=== PATIENT | female | born 1940 | race Caucasian/White ===

== ENCOUNTER 2017-02-13 16:16 | Inpatient (IN) | payer MEDICARE ==
[~2017-02-13] VITALS: Ht 165.1 cm; Wt 83.6 kg
--- NOTE | 2017-02-13 16:22 | PD ---
Physical Exam Time Seen by Provider: 16:21 Narrative 76 y/o female presents voluntarily requesting psychiatric evaluation of depression, suicidal thoughts. Denies any attempts at self-harm. Seen at triage desk. Awaiting bed placement. [facility] Medical Record Reviewed: Yes Supervised Visit with WESLY: Bigg Wang February 13, 2017 16:22
[2017-02-13 16:34] VITALS: BP 164/102; PULSE 88; RESP 22; TEMP 98.5; O2SAT 96
[2017-02-13 16:48] VITALS: BP 160/78; PULSE 66; TEMP 97.3; O2SAT 97
--- NOTE | 2017-02-13 17:41 | PD ---
HPI Chief Complaint: Suicide Ideation/Attempt Time Seen by Provider: 17:38 Travel History International Travel<30 days: No Contact w/Intl Traveler<30days: No Traveled to known affect area: No History of Present Illness HPI 76-year-old female that presents to the ED for evaluation of suicidal ideation. Patient has a chronic history of depression and states that she's been feeling suicidal no plan. Patient came here but internally for evaluation of this. She does have a history of hypertension, arthritis, chronic kidney disease as well as Dr. ortiz on Coumadin as well as COPD. She denies any medical issues at this time. Per patient she is to take metoprolol but this was reduced secondary to patient being too bradycardic. Patient denies any plan. Patient denies any chest pain or shortness of breath. Patient comes here voluntarily to get evaluate for psychiatric. Per patient his been an ongoing issue that is worsening for the past couple of days. Patient does have allergies to medication. PFSH Past Medical History Hx Anticoagulant Therapy: Yes (WARFARIN) Cardiovascular Problems: Yes (AFIB) Diabetes: Yes Patient Takes Glucophage: No Diminished Hearing: Yes ([place]ILTON) Genitourinary: Yes (Stage II Chronic Renal Disease; Bladder Issues per pt) Kidney Stones: Yes (Hx per pt.) Medical other: Yes (Graves Disease per pt.) Respiratory: Yes (COPD) Tetanus Vaccination: Unknown ?: Not Menopausal: Yes : 2 Para: 2 Miscarriage: 0 : 0 Past Surgical History Cholecystectomy: Yes Eye Surgery: Yes (Cataracts - right eye a month ago ) Hysterectomy: Yes (retains left ovary) Oral Surgery: Yes (Missing top teeth - didn't bring denture with her.) Other Surgery: Yes (Dialation of Esophagus at times per pt.) Social History Alcohol Use: No Tobacco Use: No Substance Use: No Allergies-Medications (Allergen,Severity, Reaction): Coded Allergies: Contrast Media (Verified Allergy, Severe, Swelling, 02/13/17) Morphine (Verified Allergy, Severe, Rash, 02/13/17) Penicillin (Verified Allergy, Severe, Hives, 02/13/17) Sulfa (Verified Allergy, Severe, 02/13/17) "MOUTH GETS REAL SORE" Vancomycin (Verified Allergy, Unknown, 02/13/17) Reported Meds & Prescriptions Reported Meds & Active Scripts Active Reported Ilevro Opth Drops (Nepafenac) 0.3 % Soln 1 Drop RIGHT EYE DAILY Ocuflox Opth Drops (Ofloxacin Opth Drops) 0.3 % Drops 1 Drop RIGHT EYE DAILY Durezol Opth (Difluprednate Opth) 0.05% Emul 1 Drop RIGHT EYE DAILY Metoprolol Succinate ER 24 HR (Metoprolol Succinate) 25 Mg Tab 25 Mg PO DAILY Levothyroxine (Levothyroxine Sodium) 150 Mcg Tab 150 Mcg PO DAILY Pantoprazole (Pantoprazole Sodium) 40 Mg Tab 40 Mg PO DAILY Myrbetriq (Mirabegron) 50 Mg Tab 50 Mg PO DAILY Trazodone (Trazodone HCl) 300 Mg Tab 300 Mg PO HS Lorazepam 0.5 Mg Tab 0.5 Mg PO HS Wellbutrin Xl 24 HR (Bupropion HCl) 300 Mg Tab 300 Mg PO DAILY Prozac (Fluoxetine HCl) 40 Mg Cap 40 Mg PO DAILY (NOON) Ultram (Tramadol HCl) 50 Mg Tab 50 Mg PO DAILY Senna-Docusate Sodium (Sennosides-Docusate Sodium) 8.6-50 Mg Tab 1 Tab PO DAILY Pravastatin 40 Mg Tab 40 Mg PO DAILY Lisinopril 5 Mg Tab 5 Mg PO DAILY Nitrofurantoin Macrocrystal 50 Mg Cap 50 Mg PO BID Biotin 5 Mg Cap 5 Mg PO Jantoven (Warfarin) 5 Mg Tab 5 Mg PO DIRECTED Glipizide 5 Mg Tab 2.5 Mg PO DAILY Take 30 minutes before a meal Review of Systems Except as stated in HPI: all other systems reviewed are Neg Physical Exam Narrative GENERAL: SKIN: Warm and dry. HEAD: Atraumatic. Normocephalic. EYES: Pupils equal and round. No scleral icterus. No injection or drainage. ENT: No nasal bleeding or discharge. Mucous membranes pink and moist. The tongue is midline. No uvula deviation. NECK: Trachea midline. No JVD. CARDIOVASCULAR: Regular rate and rhythm. No murmurs, S3, S4. RESPIRATORY: No accessory muscle use. Clear to auscultation. Breath sounds equal bilaterally. GASTROINTESTINAL: Abdomen soft, non-tender, nondistended. Hepatic and splenic margins not palpable. MUSCULOSKELETAL: Extremities without clubbing, cyanosis, or edema. No obvious deformities. Full range of motion of the upper and lower extremities bilaterally. 2+ pulses bilaterally. NEUROLOGICAL: Awake and alert. No obvious cranial nerve deficits. Motor grossly within normal limits. Five out of 5 muscle strength in the arms and legs. Normal speech. PSYCHIATRIC: Appropriate mood and affect; insight and judgment normal. Data Data Last Documented VS Vital Signs Date Time Temp Pulse Resp B/P Pulse Ox O2 Delivery O2 Flow Rate FiO2 02/13/17 18:23 97.8 70 18 148/67 97 02/13/17 16:48 Room Air Orders Diet Regular Basic (02/13/17 Dinner) Complete Blood Count With Diff (02/13/17 17:13) Comprehensive Metabolic Panel (02/13/17 17:13) Psych Screen (02/13/17 17:13) Drug Screen, Random Urine (02/13/17 17:13) Alcohol (Ethanol) (02/13/17 17:13) Salicylates (Aspirin) (02/13/17 17:13) Tylenol (Acetaminophen) (02/13/17 17:13) Prothrombin Time / Inr (Pt) (02/13/17 17:37) Act Partial Throm Time (Ptt) (02/13/17 17:37) Labs Laboratory Tests Test 02/13/17 19:25 White Blood Count 3.2 TH/MM3 Red Blood Count 4.40 MIL/MM3 Hemoglobin 11.8 GM/DL Hematocrit 35.0 % Mean Corpuscular Volume 79.5 FL Mean Corpuscular Hemoglobin 26.9 PG Mean Corpuscular Hemoglobin 33.8 % Concent Red Cell Distribution Width 13.2 % Platelet Count 136 TH/MM3 Mean Platelet Volume 8.0 FL Neutrophils (%) (Auto) 62.1 % Lymphocytes (%) (Auto) 25.5 % Monocytes (%) (Auto) 9.9 % Eosinophils (%) (Auto) 2.0 % Basophils (%) (Auto) 0.5 % Neutrophils # (Auto) 2.0 TH/MM3 Lymphocytes # (Auto) 0.8 TH/MM3 Monocytes # (Auto) 0.3 TH/MM3 Eosinophils # (Auto) 0.1 TH/MM3 Basophils # (Auto) 0.0 TH/MM3 CBC Comment DIFF FINAL Differential Comment Prothrombin Time 16.8 SEC Prothromb Time International 1.5 RATIO Ratio Activated Partial 29.7 SEC Thromboplast Time Sodium Level 140 MEQ/L Potassium Level 3.9 MEQ/L Chloride Level 105 MEQ/L Carbon Dioxide Level 29.0 MEQ/L Anion Gap 6 MEQ/L Blood Urea Nitrogen 31 MG/DL Creatinine 1.26 MG/DL Estimat Glomerular Filtration 41 ML/MIN Rate Random Glucose 186 MG/DL Calcium Level 9.0 MG/DL Total Bilirubin 0.2 MG/DL Aspartate Amino Transf 16 U/L (AST/SGOT) Alanine Aminotransferase 20 U/L (ALT/SGPT) Alkaline Phosphatase 74 U/L Total Protein 6.3 GM/DL Albumin 3.2 GM/DL Salicylates Level LESS THAN 1.7 MG/DL Acetaminophen Level LESS THAN 2.0 MCG/ML Ethyl Alcohol Level LESS THAN 3 MG/DL MDM Medical Decision Making Medical Screen Exam Complete: Yes Emergency Medical Condition: Yes Medical Record Reviewed: Yes Interpretation(s) CBC & BMP Diagram 02/13/17 19:25 INR of 1.5 LFTS WNL tox negative Differential Diagnosis Depression versus suicidal ideation versus anxiety versus adjustment disorder versus mood disorder versus bipolar disorder versus schizophrenia versus paranoid disorder versus psychosis versus substance abuse versus alcohol abuse versus alcohol induced psychosis versus homicidality addition versus cutting versus personality disorder Narrative Course 76-year-old female that presents to the ED for evaluation of psych. Patient was properly examined and was found to have signs and symptoms consistent appears to be psychiatric illness. No sign of acute medical distress. Patient has chronic medical issues. Lab work was done. Patient was medically cleared. Okay to be seen by psych. Mental health screening was discussed with the patient. Diagnosis Primary Impression: Depression Qualified Code: F33.1 - Moderate episode of recurrent major depressive disorder Ted Gonsales February 13, 2017 17:41
[2017-02-13] MEDS ORDERED: GLIP5TAB8 PO (18:08)
[2017-02-13] MEDS ORDERED: JANT5TAB PO (18:09)
[2017-02-13] MEDS ORDERED: BIOTCAP PO (18:11)
[2017-02-13] MEDS ORDERED: NITR1CAP37 PO (18:13)
[2017-02-13] MEDS ORDERED: PRAV40TA2 PO (18:22)
[2017-02-13] MEDS ORDERED: LISI-519 PO (18:22)
[2017-02-13 18:23] VITALS: BP 148/67; PULSE 70; RESP 18; TEMP 97.8; O2SAT 97
[2017-02-13] MEDS ORDERED: SENN1TAB2 PO (18:25)
[2017-02-13] MEDS ORDERED: SENO8.6T5 PO (18:25)
[2017-02-13] MEDS ORDERED: ULTR50TA5 PO (18:26)
[2017-02-13] MEDS ORDERED: PROZ40CA PO (18:27)
[2017-02-13] MEDS ORDERED: WELLTAB39 PO (18:28)
[2017-02-13] MEDS ORDERED: TRAZ300T2 PO (18:29)
[2017-02-13] MEDS ORDERED: LORA-373 PO (18:29)
[2017-02-13] MEDS ORDERED: PANT40TA3 PO (18:30)
[2017-02-13] MEDS ORDERED: MIRA50TA PO (18:30)
[2017-02-13] MEDS ORDERED: METO25TA6 PO (18:31)
[2017-02-13] MEDS ORDERED: LEVO150T7 PO (18:31)
[2017-02-13] MEDS ORDERED: DIFL0.0512 RIGHT EYE (18:34)
[2017-02-13] MEDS ORDERED: OCUF0.3D RIGHT EYE (18:35)
[2017-02-13] MEDS ORDERED: NEPA0.3D RIGHT EYE (18:36)
[2017-02-13 19:59] LABS: BASOPHIL % 0.5 % (0.0-2.0); EOSINOPHIL # 0.1 TH/MM3 (0-0.4); HEMO FLAGS DIFF FINAL; LYMPH % 25.5 % (9.0-44.0); LYMPHOCYTE # 0.8 TH/MM3 (1.0-4.8); MEAN CELL VOLUME 79.5 FL (80.0-100.0); MEAN CORPUSCULAR HEMOGLOBIN 26.9 PG (27.0-34.0); MEAN CORPUSCULAR HGB CONC 33.8 % (32.0-36.0); MONO % 9.9 % (0.0-8.0); NEUT % 62.1 % (16.0-70.0); PLATELET COUNT 136 TH/MM3 (150-450); RED CELL DISTRIBUTION WIDTH 13.2 % (11.6-17.2); WHITE BLOOD COUNT 3.2 TH/MM3 (4.0-11.0)
[2017-02-13 20:00] LABS: ANION GAP 6 MEQ/L (5-15)
[2017-02-13 20:04] LABS: ACETAMINOPHEN LESS THAN 2.0 MCG/ML (10.0-30.0); ALKALINE PHOSPHATASE 74 U/L (45-117); ALT (GPT) 20 U/L (10-53); AST (GOT) 16 U/L (15-37); BLOOD UREA NITROGEN 31 MG/DL (7-18); CHLORIDE 105 MEQ/L (98-107); GLOMERULAR FILTRATION RATE 41 ML/MIN (>89); POTASSIUM 3.9 MEQ/L (3.5-5.1); SODIUM (NA) 140 MEQ/L (136-145); TOTAL BILIRUBIN ADULT 0.2 MG/DL (0.2-1.0)
[2017-02-13 20:11] LABS: APTT (PATIENT) 29.7 SEC (24.3-30.1); INTERNATIONAL NORMALIZED RATIO 1.5 RATIO; PROTHROMBIN TIME - PATIENT 16.8 SEC (9.8-11.6)
[2017-02-13 20:56] LABS: AMPHETAMINE, URINE NEG (NEG); BARBITURATES, URINE NEG (NEG); COCAINE, URINE NEG (NEG)
[2017-02-13 22:19] VITALS: BP 171/79; PULSE 69; RESP 18; O2SAT 99
[2017-02-13] MEDS ORDERED: LORazepam 0.5 MG TAB PO ONE (22:30)
[2017-02-14 01:51] VITALS: BP 158/90; PULSE 67; RESP 18; O2SAT 98
[2017-02-14 06:24] VITALS: BP 160/74; PULSE 65; RESP 19; O2SAT 97
[2017-02-14 10:32] VITALS: BP 132/67; PULSE 75; RESP 16; TEMP 98.4; O2SAT 97
[2017-02-14] MEDS ORDERED: DIFLUPREDNATE OPTH RIGHT EYE SCH (14:15)
[2017-02-14] MEDS ORDERED: NON-FORMULARY DRUG (Nepafenac Opth Drops (Ilevro Opth Drops) 1 DROP) RIGHT EYE SCH (14:15)
[2017-02-14 14:36] VITALS: BP 153/87; PULSE 70; RESP 16; O2SAT 98
[2017-02-14] MEDS ORDERED: ACETAMINOPHEN 325 MG TAB PO PRN (15:00)
[2017-02-14] MEDS ORDERED: MAGNESIUM HYDROXIDE SUSP 30 ML CUP PO PRN (15:00)
[2017-02-14] MEDS ORDERED: ALUMINUM/MAGNESIUM/SIMETH 30 ML CUP PO PRN (15:00)
[2017-02-14] MEDS: OFLOXACIN 0.3% OPTH SOLN 5 ML BTL RIGHT EYE SCH (16:00)
[2017-02-14] MEDS: PANTOPRAZOLE SOD 40 MG DELAYED RELEASE TAB PO SCH (16:25)
[2017-02-14] MEDS: LISINOPRIL 5 MG TAB PO SCH (16:25)
[2017-02-14] MEDS: traMADol HCL 50 MG TAB PO SCH (16:26)
[2017-02-14] MEDS ORDERED: NITROFURANTOIN MONOHYD MACROCR 100 MG CAP PO SCH (18:00)
[2017-02-14 19:36] VITALS: BP 163/80; PULSE 72; RESP 16; TEMP 97.2
[2017-02-14] MEDS: LORazepam 0.5 MG TAB PO SCH (21:08)
[2017-02-14] MEDS: traZODone HCL 100 MG TAB PO SCH (21:08)
[2017-02-15] MEDS: hydrOXYzine HCL 50 MG TAB PO PRN (04:29)
[2017-02-15 05:29] VITALS: BP 136/65; PULSE 64; RESP 18; TEMP 98.2
[2017-02-15] MEDS: LEVOTHYROXINE SODIUM 150 MCG TAB PO SCH (05:54)
[2017-02-15 07:22] LABS: INTERNATIONAL NORMALIZED RATIO 1.4 RATIO; PROTHROMBIN TIME - PATIENT 15.2 SEC (9.8-11.6)
[2017-02-15] MEDS ORDERED: TOLTERODINE TARTRATE 4 MG CAP LA PO SCH (09:00)
[2017-02-15] MEDS: PANTOPRAZOLE SOD 40 MG DELAYED RELEASE TAB PO SCH (09:32)
[2017-02-15] MEDS: LISINOPRIL 5 MG TAB PO SCH (09:34)
[2017-02-15] MEDS: glipiZIDE 5 MG TAB PO SCH ×2 (09:35→09:52)
[2017-02-15] MEDS: DOCUSATE SODIUM 50 MG/SENNA 8.6 MG TAB PO SCH ×2 (09:35→09:51)
[2017-02-15] MEDS: PRAVASTATIN SOD 40 MG TAB PO SCH ×2 (09:35→09:51)
[2017-02-15] MEDS: traMADol HCL 50 MG TAB PO SCH ×2 (09:37→09:52)
[2017-02-15] MEDS: TOLTERODINE TARTRATE 4 MG CAP LA PO SCH (09:42)
[2017-02-15] MEDS: NITROFURANTOIN MONOHYD MACROCR 100 MG CAP PO SCH ×3 (09:43→17:26)
[2017-02-15] MEDS: buPROPion HCL 150 MG EXTENDED RELEASE TAB PO SCH ×2 (09:44→09:51)
[2017-02-15] MEDS: METOPROLOL SUCCINATE 25 MG EXTENDED RELEASE TAB PO SCH ×2 (09:48→09:51)
[2017-02-15] MEDS: OFLOXACIN 0.3% OPTH SOLN 5 ML BTL RIGHT EYE SCH (09:49)
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
[2017-02-15] MEDS: FLUoxetine HCL 20 MG CAP PO SCH (14:00)
--- NOTE | 2017-02-15 14:30 | PD.CONS ---
[facility] By [facility]ry team Reason for Consult Medical management, assist with history of multiple medical issues Primary Care Physician Dr. Jim Yin Diagnoses: History of Present Illness Written by Jac Ryder, acting as scribe for Dr. Horvath on 02/15/17 at 17: 51. Patient is a 76-year-old female with primary medical history of HTN, DM 2, CK D2 , COPD, A. fib on Coumadin who came into the hospital for evaluation of suicidal ideation. As per record, patient is a chronic history of depression and states that she's been feeling suicidal with no plans. She is now admitted to inpatient psychiatry unit for further evaluation. Consulted for medical management. Patient seen and examined today. Reports she is doing. Reports she doesn't have SI/HI right now. Verified her medical history. States she is taking Macrobid as a prophylactic status for bladder infection, which is recurrent. Discuss with patient Will DC Macrobid for now and repeat urine sample. Agrees with plan. Otherwise, denies pain and discomfort. Denies SOB/ dyspnea. Denies chest pain, palpitations, headaches, dizziness. Denies fevers, chills, n/ v/d. Denies hematuria, dysuria. Review of Systems Except as stated in HPI: all other systems reviewed are Neg Past Family Social History Allergies: Coded Allergies: Contrast Media (Verified Allergy, Severe, Swelling, 02/13/17) Morphine (Verified Allergy, Severe, Rash, 02/13/17) Penicillin (Verified Allergy, Severe, Hives, 02/13/17) Sulfa (Verified Allergy, Severe, 02/13/17) "MOUTH GETS REAL SORE" Vancomycin (Verified Allergy, Unknown, 02/13/17) Past Medical History HTN A. fib on Coumadin DM 2 Heart. CK D2 Kidney stones COPD Graves' disease - hypothyroidism Bladder issues Past Surgical History Cholecystectomy Cataract surgery Reported Medications Reported Meds & Active Scripts Active Reported Ilevro Opth Drops (Nepafenac) 0.3 % Soln 1 Drop RIGHT EYE DAILY Ocuflox Opth Drops (Ofloxacin Opth Drops) 0.3 % Drops 1 Drop RIGHT EYE DAILY Durezol Opth (Difluprednate Opth) 0.05% Emul 1 Drop RIGHT EYE DAILY Metoprolol Succinate ER 24 HR (Metoprolol Succinate) 25 Mg Tab 25 Mg PO DAILY Levothyroxine (Levothyroxine Sodium) 150 Mcg Tab 150 Mcg PO DAILY Pantoprazole (Pantoprazole Sodium) 40 Mg Tab 40 Mg PO DAILY Myrbetriq (Mirabegron) 50 Mg Tab 50 Mg PO DAILY Trazodone (Trazodone HCl) 300 Mg Tab 300 Mg PO HS Lorazepam 0.5 Mg Tab 0.5 Mg PO HS Wellbutrin Xl 24 HR (Bupropion HCl) 300 Mg Tab 300 Mg PO DAILY Prozac (Fluoxetine HCl) 40 Mg Cap 40 Mg PO DAILY (NOON) Ultram (Tramadol HCl) 50 Mg Tab 50 Mg PO DAILY Senna-Docusate Sodium (Sennosides-Docusate Sodium) 8.6-50 Mg Tab 1 Tab PO DAILY Pravastatin 40 Mg Tab 40 Mg PO DAILY Lisinopril 5 Mg Tab 5 Mg PO DAILY Nitrofurantoin Macrocrystal 50 Mg Cap 50 Mg PO BID Biotin 5 Mg Cap 5 Mg PO Jantoven (Warfarin) 5 Mg Tab 5 Mg PO DIRECTED Glipizide 5 Mg Tab 2.5 Mg PO DAILY Take 30 minutes before a meal Active Ordered Medications Current Medications Medications (Trade) Dose Ordered Sig/Jennifer Route Start Time Stop Time Status Last Admin (Benadryl) 50 mg HS PRN PO 02/14/17 21:00 (Milk Of Magnesia Liq) 30 ml DAILY PRN PO 02/14/17 15:00 (Mag-Al Plus Susp Liq) 30 ml Q6H PRN PO 02/14/17 15:00 (Atarax) 50 mg Q6H PRN PO 02/14/17 15:00 02/15/17 04:29 (Wellbutrin Xl 24 Hr) 300 mg DAILY PO 02/14/17 15:00 02/15/17 09:44 (Glucotrol) 2.5 mg DAILY PO 02/14/17 15:00 02/15/17 09:35 (Synthroid) 150 mcg DAILY@06 PO 02/15/17 06:00 02/15/17 05:54 (Prinivil) 5 mg DAILY PO 02/14/17 15:00 02/15/17 09:34 (Ativan) 0.5 mg HS PO 02/14/17 21:00 02/14/17 21:08 (Toprol Xl) 25 mg DAILY PO 02/14/17 15:00 02/15/17 09:48 (Ocuflox 0.3% Opth Soln) 1 drop DAILY RIGHT EYE 02/14/17 16:00 (Protonix) 40 mg DAILY PO 02/14/17 15:00 02/15/17 09:32 (Pravachol) 40 mg DAILY PO 02/14/17 15:00 02/15/17 09:35 (Nita-Colace) 1 tab DAILY PO 02/14/17 15:00 02/15/17 09:35 (Ultram) 50 mg DAILY PO 02/14/17 15:00 02/14/17 16:26 (Desyrel) 300 mg HS PO 02/14/17 21:00 02/14/17 21:08 Non-Formulary Medication 1 drop DAILY RIGHT EYE 02/14/17 14:15 Hold (PROzac) 40 mg DAILY@12 PO 02/15/17 12:00 02/15/17 14:00 Non-Formulary Medication 1 drop DAILY RIGHT EYE 02/14/17 14:15 Hold (Detrol La) 4 mg DAILY PO 02/15/17 09:00 02/15/17 09:42 (Macrobid) 100 mg BID@09,18 PO 02/14/17 18:00 02/15/17 09:43 Warfarin Sodium 5 mg 5 mg DAILY@1600 PO 02/15/17 16:00 (Coumadin Consult Pharmacy) 0 ml @ 0 mls/hr UNSCH OTHER 02/14/17 18:00 (Coumadin Booklet) 1 ONCE ONCE .XX 02/15/17 16:00 02/15/17 16:01 (Tylenol) 650 mg Q4H PRN PO 02/15/17 12:00 Family History Mother had breast cancer Father had lung cancer Social History Patient is . Lives with her daughter. She has 2 children. Denies alcohol use Denies tobacco use, one year tobacco smoking when she was young Denies illicit drug use Physical Exam Vital Signs Vital Signs Date Time Temp Pulse Resp B/P Pulse Ox O2 Delivery O2 Flow Rate FiO2 02/15/17 05:29 98.2 64 18 136/65 02/14/17 19:36 97.2 72 16 163/80 02/14/17 14:36 70 16 153/87 98 Room Air Physical Exam GENERAL: This is a well-nourished, well-developed patient, in no apparent distress. SKIN: No rashes, ecchymoses or lesions. Warm and dry. HEAD: Atraumatic. Normocephalic. No temporal or scalp tenderness. EYES: Pupils equal round and reactive. No scleral icterus. No injection or drainage. ENT: Nose without bleeding. Throat without erythema. Uvula midline. Airway patent. NECK: Trachea midline. No JVD or lymphadenopathy. CARDIOVASCULAR: Regular rate and rhythm without murmurs, gallops, or rubs. RESPIRATORY: Clear to auscultation. Breath sounds equal bilaterally. No wheezes , rales, or rhonchi. GASTROINTESTINAL: Abdomen soft, non-tender, nondistended. Bowel sounds active 4. MUSCULOSKELETAL: Extremities without clubbing, cyanosis, or edema. NEUROLOGICAL: Awake and alert. Oriented to person, time, place. Motor and sensory grossly within normal limits. Normal speech. Laboratory Laboratory Tests Test 02/15/17 06:58 Prothrombin Time 15.2 Prothromb Time International 1.4 Ratio Result Diagram: 02/13/17192402/13/171924 Assessment and Plan Problem List: (1) History of post traumatic stress disorder ICD Code: Z86.59 Status: Chronic (2) Severe recurrent major depression without psychotic features ICD Code: F33.2 Status: Acute (3) Depression ICD Code: F32.9 Status: Acute (4) DM2 (diabetes mellitus, type 2) ICD Code: E11.9 Status: Chronic (5) HLD (hyperlipidemia) ICD Code: E78.5 Status: Chronic (6) HTN (hypertension) ICD Code: I10 Status: Chronic (7) Hypothyroidism ICD Code: E03.9 Status: Chronic (8) MAYA (acute kidney injury) ICD Code: N17.9 Status: Acute Assessment and Plan Patient is a 76-year-old female with primary medical history of HTN, DM 2, CK D2 , COPD, A. fib on Coumadin who came into the hospital for evaluation of suicidal ideation. As per record, patient is a chronic history of depression and states that she's been feeling suicidal with no plans. She is now admitted to inpatient psychiatry unit for further evaluation. Consulted for medical management. Suicidal ideation, depression - managed by psychiatry team HTN, uncontrolled - Continue home medications lisinopril 5 mg daily, metoprolol 25 mg daily - Clonidine when necessary - Monitor BP trend Acute kidney injury on CK D2 - Reports history of chronic kidney disease stage II - Recent creatinine 1.26 with a GFR 41, showing worsening function - DC nephrotoxins patient has been on Macrobid twice a day, hold for now and repeat UA - Will continue lisinopril 5 mg, kidney protectant - Encouraged by mouth fluid intake Diabetes mellitus 2 - Continue glipizide 2.5 mg daily - Check hemoglobin A1c - Insulin sliding scale - Monitor Accu-Cheks. Monitor for hypoglycemia. - Continue with diabetic diet A. fib, rate controlled - Continue Coumadin - Monitor INR COPD, not in exacerbation - DuoNeb's when necessary Hypothyroidism - Check TSH, continue levothyroxine dose from home 150 g DVT prop Coumadin Thank you for this consultation. We will follow patient with you. This note was transcribed by pradeep Ryder. I, Dr. Larry Badillo personally performed the history, physical exam, and medical decision making; and confirmed the accuracy of the information in the transcribed note. Authenticated by Dr. Larry Badillo on 02/15/17 at 17:51. Code Status Full code Discussed Condition With Patient, nursing Problem Qualifiers (1) Depression: Qualified Code: F33.1 - Moderate episode of recurrent major depressive disorder Jac Orozco February 15, 2017 14:30 Larry Dudley MD February 21, 2017 20:30
[2017-02-15] MEDS: WARFARIN SOD 5 MG TAB PO SCH ×2 (17:26→17:33)
[2017-02-15 17:36] VITALS: BP 159/81; PULSE 64; RESP 18; TEMP 98.1; O2SAT 97
[2017-02-15] MEDS ORDERED: cloNIDine HCL 0.1 MG TAB PO PRN (18:00)
[2017-02-15] MEDS: LORazepam 0.5 MG TAB PO SCH (20:08)
[2017-02-15] MEDS: traZODone HCL 100 MG TAB PO SCH (20:08)
[2017-02-16 05:41] VITALS: BP 136/68; PULSE 75; RESP 17; TEMP 98.1; O2SAT 95
[2017-02-16] MEDS: LEVOTHYROXINE SODIUM 150 MCG TAB PO SCH (06:00)
[2017-02-16] MEDS: TOLTERODINE TARTRATE 4 MG CAP LA PO SCH (09:00)
[2017-02-16] MEDS: OFLOXACIN 0.3% OPTH SOLN 5 ML BTL RIGHT EYE SCH (09:00)
[2017-02-16 09:03] LABS: BASOPHIL % 0.6 % (0.0-2.0); EOSINOPHIL # 0.1 TH/MM3 (0-0.4); EOSINOPHIL % 2.6 % (0.0-4.0); HEMATOCRIT 38.9 % (35.0-46.0); HEMO FLAGS DIFF FINAL; LYMPH % 34.8 % (9.0-44.0); LYMPHOCYTE # 1.3 TH/MM3 (1.0-4.8); MEAN CELL VOLUME 81.5 FL (80.0-100.0); MEAN CORPUSCULAR HEMOGLOBIN 26.4 PG (27.0-34.0); MEAN CORPUSCULAR HGB CONC 32.4 % (32.0-36.0); MONO % 9.7 % (0.0-8.0); NEUT % 52.3 % (16.0-70.0); PLATELET COUNT 163 TH/MM3 (150-450); RED BLOOD COUNT 4.77 MIL/MM3 (4.00-5.30); RED CELL DISTRIBUTION WIDTH 13.7 % (11.6-17.2); WHITE BLOOD COUNT 3.7 TH/MM3 (4.0-11.0)
[2017-02-16 09:05] LABS: INTERNATIONAL NORMALIZED RATIO 1.3 RATIO
[2017-02-16] MEDS: PRAVASTATIN SOD 40 MG TAB PO SCH (09:36)
[2017-02-16] MEDS: glipiZIDE 5 MG TAB PO SCH (09:36)
[2017-02-16] MEDS: traMADol HCL 50 MG TAB PO SCH (09:36)
[2017-02-16] MEDS: METOPROLOL SUCCINATE 25 MG EXTENDED RELEASE TAB PO SCH (09:36)
[2017-02-16] MEDS: PANTOPRAZOLE SOD 40 MG DELAYED RELEASE TAB PO SCH (09:37)
[2017-02-16] MEDS: buPROPion HCL 150 MG EXTENDED RELEASE TAB PO SCH (09:37)
[2017-02-16] MEDS: LISINOPRIL 5 MG TAB PO SCH (09:37)
[2017-02-16] MEDS: DOCUSATE SODIUM 50 MG/SENNA 8.6 MG TAB PO SCH (09:37)
[2017-02-16 09:52] LABS: ALKALINE PHOSPHATASE 81 U/L (45-117); ALT (GPT) 20 U/L (10-53); ANION GAP 8 MEQ/L (5-15); AST (GOT) 14 U/L (15-37); BICARBONATE 29.8 MEQ/L (21.0-32.0); BLOOD UREA NITROGEN 31 MG/DL (7-18); CHLORIDE 103 MEQ/L (98-107); GLOMERULAR FILTRATION RATE 40 ML/MIN (>89); POTASSIUM 4.3 MEQ/L (3.5-5.1); SODIUM (NA) 141 MEQ/L (136-145); TOTAL BILIRUBIN ADULT 0.2 MG/DL (0.2-1.0)
--- NOTE | 2017-02-16 10:09 | HHI.PYPN ---
Subjective Remarks Patient seen in her room with nurse Olamide, chart reviewed. Hospitalist consult noted and appreciated. Patient states she slept better. Feels her depression while remaining is somewhat softer. She feels somewhat frustrated with the lack of milieu scheduling of the 2500 unit. I feel patient would benefit from 2600 we'll transfer her there today. For now continue medication no change today patient denies suicidality homicidality voices or visions Review of Systems Except as stated in HPI: all other systems reviewed are Neg Objective Alert: Yes [place]: Person, Place, Date, Situation Mood: Calm, Depressed Affect: Other (decrease range and intensity) Memory Intact: Comment (fair) Hallucinations: Other (denies) Delusions: No Delusion Type: Other (none) Suicidal: Ideation (denies today) Homicidal: Ideation (denies) Insight/Judgment Poor to fair Labs Test 02/16/17 07:59 White Blood Count 3.7 TH/MM3 Red Blood Count 4.77 MIL/MM3 Hemoglobin 12.6 GM/DL Hematocrit 38.9 % Mean Corpuscular Volume 81.5 FL Mean Corpuscular Hemoglobin 26.4 PG Mean Corpuscular Hemoglobin 32.4 % Concent Red Cell Distribution Width 13.7 % Platelet Count 163 TH/MM3 Mean Platelet Volume 8.2 FL Neutrophils (%) (Auto) 52.3 % Lymphocytes (%) (Auto) 34.8 % Monocytes (%) (Auto) 9.7 % Eosinophils (%) (Auto) 2.6 % Basophils (%) (Auto) 0.6 % Neutrophils # (Auto) 2.0 TH/MM3 Lymphocytes # (Auto) 1.3 TH/MM3 Monocytes # (Auto) 0.4 TH/MM3 Eosinophils # (Auto) 0.1 TH/MM3 Basophils # (Auto) 0.0 TH/MM3 CBC Comment DIFF FINAL Differential Comment Prothrombin Time 14.0 SEC Prothromb Time International 1.3 RATIO Ratio Sodium Level 141 MEQ/L Potassium Level 4.3 MEQ/L Chloride Level 103 MEQ/L Carbon Dioxide Level 29.8 MEQ/L Anion Gap 8 MEQ/L Blood Urea Nitrogen 31 MG/DL Creatinine 1.29 MG/DL Estimat Glomerular Filtration 40 ML/MIN Rate Random Glucose 128 MG/DL Calcium Level 9.6 MG/DL Total Bilirubin 0.2 MG/DL Aspartate Amino Transf 14 U/L (AST/SGOT) Alanine Aminotransferase 20 U/L (ALT/SGPT) Alkaline Phosphatase 81 U/L Total Protein 6.8 GM/DL Albumin 3.5 GM/DL Thyroid Stimulating Hormone 0.837 uIU/ML 3rd Gen Vitals/IOs Vital Signs Date Time Temp Pulse Resp B/P Pulse Ox O2 Delivery O2 Flow Rate FiO2 02/16/17 05:41 98.1 75 17 136/68 95 02/14/17 14:36 Room Air Intake and Output 02/15/17 02/15/17 02/16/17 08:00 16:00 00:00 Intake Total 120 ml 840 ml Balance 120 ml 840 ml Assessment & Plan Problem List: (1) History of post traumatic stress disorder ICD Code: Z86.59 (2) Severe recurrent major depression without psychotic features ICD Code: F33.2 Assessment & Plan Estimated LOS: days patient continues depressed, though somewhat calmer. Will transfer patient 2600 unit I feel she has the capacity in the cognitive ability to benefit from the structured milieu. Otherwise continue medication at this time Justification for Cont. Inpt. At this time patient decompensate placed in a lower level of care Discharge Planning To be determined Request HC Surrog/Guard Advoc?: No Reed Cruz MD February 16, 2017 10:09
[2017-02-16 10:35] LABS: BACTERIA, URINE RARE /hpf; BLOOD, URINE NEG (NEG); COMMENT (UR) CULTURE INDICATED; CULTURE IF INDICATED CULTURE INDICATED; GLUCOSE,URINE NEG (NEG); KETONE, URINE NEG (NEG); NITRITE,URINE NEG (NEG); SQUAMOUS EPITHELIAL CELL URINE <1 /hpf (0-5); TRANSITIONAL EPI CELLS, URINE <1 /hpf; URINE COLOR YELLOW (YELLW/STRAW)
[2017-02-16] MEDS: FLUoxetine HCL 20 MG CAP PO SCH (12:00)
[2017-02-16] MEDS: ACETAMINOPHEN 325 MG TAB PO PRN (12:34)
[2017-02-16 14:36] LABS: HEMOGLOBIN A1a 1.1 %; HEMOGLOBIN A1b 0.9 %; HEMOGLOBIN Ao 84.2 %; HEMOGLOBIN F 1.2 %; HEMOGLOBIN LA1C 2.2 %; HEMOGLOBIN P3 5.4 %
--- NOTE | 2017-02-16 15:10 | HHI.PR ---
Subjective Remarks Follow up on patient with HTN, DM type 2, CKD stage 2, COPD and afib on Coumadin. Patient seen and examined today. Patient complains of an episode of tightness and pain around the right calf extending to the knee. Some improvement after Tylenol given. Denies any injury. No chest pain or SOB. No fever or chills. No N/V or abdominal pain. Patient also denies any dysuria or gross hematuria but reports long history of microscopic hematuria. Objective Vitals Vital Signs Date Time Temp Pulse Resp B/P Pulse Ox O2 Delivery O2 Flow Rate FiO2 02/16/17 05:41 98.1 75 17 136/68 95 02/15/17 17:36 98.1 64 18 159/81 97 I/O 02/15/17 02/15/17 02/15/17 02/16/17 02/16/17 02/16/17 07:00 15:00 23:00 07:00 15:00 23:00 Intake Total 120 ml 840 ml 240 ml 1080 ml Balance 120 ml 840 ml 240 ml 1080 ml Intake Oral 120 ml 840 ml 240 ml 1080 ml # Voids 2 1 Result Diagram: 02/16/17 0759 02/16/17 0759 Objective Remarks GENERAL: This is a well-nourished, well-developed patient, in no apparent distress. Awake and alert. SKIN: No rashes, ecchymoses or lesions. Warm and dry. HEAD: Atraumatic. Normocephalic. EYES: EOMI. No scleral icterus. No injection or drainage. CARDIOVASCULAR: Regular rate and rhythm without murmurs, gallops, or rubs. RESPIRATORY: Clear to auscultation. Breath sounds equal bilaterally. No wheezes , rales, or rhonchi. GASTROINTESTINAL: Abdomen soft, non-tender, nondistended. Bowel sounds active 4. MUSCULOSKELETAL: Extremities without clubbing, cyanosis, or edema. Right calf supple. (+)tender to palpation. Distal pulses 2+. NEUROLOGICAL: Awake and alert. Oriented to person, time, place. Motor and sensory grossly within normal limits. Normal speech. Medications and IVs Current Medications Medications (Trade) Dose Ordered Sig/Jennifer Route Start Time Stop Time Status Last Admin (Benadryl) 50 mg HS PRN PO 02/14/17 21:00 (Milk Of Magnesia Liq) 30 ml DAILY PRN PO 02/14/17 15:00 (Mag-Al Plus Susp Liq) 30 ml Q6H PRN PO 02/14/17 15:00 (Atarax) 50 mg Q6H PRN PO 02/14/17 15:00 02/15/17 04:29 (Wellbutrin Xl 24 Hr) 300 mg DAILY PO 02/14/17 15:00 02/16/17 09:37 (Glucotrol) 2.5 mg DAILY PO 02/14/17 15:00 02/16/17 09:36 (Synthroid) 150 mcg DAILY@06 PO 02/15/17 06:00 02/16/17 06:00 (Prinivil) 5 mg DAILY PO 02/14/17 15:00 02/16/17 09:37 (Ativan) 0.5 mg HS PO 02/14/17 21:00 02/15/17 20:08 (Toprol Xl) 25 mg DAILY PO 02/14/17 15:00 02/16/17 09:36 (Ocuflox 0.3% Opth Soln) 1 drop DAILY RIGHT EYE 02/14/17 16:00 (Protonix) 40 mg DAILY PO 02/14/17 15:00 02/16/17 09:37 (Pravachol) 40 mg DAILY PO 02/14/17 15:00 02/16/17 09:36 (Nita-Colace) 1 tab DAILY PO 02/14/17 15:00 02/16/17 09:37 (Ultram) 50 mg DAILY PO 02/14/17 15:00 02/16/17 09:36 (Desyrel) 300 mg HS PO 02/14/17 21:00 02/15/17 20:08 Non-Formulary Medication 1 drop DAILY RIGHT EYE 02/14/17 14:15 Hold (PROzac) 40 mg DAILY@12 PO 02/15/17 12:00 02/16/17 12:00 Non-Formulary Medication 1 drop DAILY RIGHT EYE 02/14/17 14:15 Hold (Detrol La) 4 mg DAILY PO 02/15/17 09:00 02/16/17 09:00 Warfarin Sodium 5 mg 5 mg DAILY@1600 PO 02/15/17 16:00 02/15/17 17:33 (Coumadin Consult Pharmacy) 0 ml @ 0 mls/hr UNSCH OTHER 02/14/17 18:00 (Tylenol) 650 mg Q4H PRN PO 02/15/17 12:00 02/16/17 12:34 (Catapres) 0.1 mg Q6H PRN PO 02/15/17 18:00 (Coumadin) 1 mg ONCE PO 02/16/17 16:00 02/16/17 21:00 A/P Problem List: (1) History of post traumatic stress disorder ICD Code: Z86.59 Status: Chronic (2) Severe recurrent major depression without psychotic features ICD Code: F33.2 Status: Acute (3) Depression ICD Code: F32.9 Status: Acute (4) DM2 (diabetes mellitus, type 2) ICD Code: E11.9 Status: Chronic (5) HLD (hyperlipidemia) ICD Code: E78.5 Status: Chronic (6) HTN (hypertension) ICD Code: I10 Status: Chronic (7) Hypothyroidism ICD Code: E03.9 Status: Chronic (8) MAYA (acute kidney injury) ICD Code: N17.9 Status: Acute Assessment and Plan Patient is a 76-year-old female with primary medical history of HTN, DM 2, CK D2 , COPD, A. fib on Coumadin who came into the hospital for evaluation of suicidal ideation. As per record, patient is a chronic history of depression and states that she's been feeling suicidal with no plans. She is now admitted to inpatient psychiatry unit for further evaluation. Consulted for medical management. Suicidal ideation, depression - managed by psychiatry team HTN, uncontrolled - improved - Continue home medications lisinopril 5 mg daily, metoprolol 25 mg daily - Clonidine when necessary - Monitor BP trend Acute kidney injury on CKD stage 2 - Reports history of chronic kidney disease stage II - Recent creatinine 1.26 with a GFR 41, showing worsening function. Creatinine today 1.29. - DC nephrotoxins patient has been on Macrobid twice a day, hold for now and repeat UA - Will continue lisinopril 5 mg, kidney protectant - Encouraged by mouth fluid intake - BMP in am Diabetes mellitus 2 - Continue glipizide 2.5 mg daily - Check hemoglobin A1c - pending - Insulin sliding scale - Monitor Accu-Cheks. Monitor for hypoglycemia. - Continue with diabetic diet A. fib, rate controlled - Continue Coumadin - INR subtherapeutic, pharmacy dosing. Continue to monitor. Possible UTI - h/o recurrent UTIs, previously on Macrobid - UA positive for small leukocytes and 6 WBCs - patient asymptomatic - f/u on urine cx results COPD, not in exacerbation - DuoNeb's when necessary Hypothyroidism - TSH 0.837 - continue levothyroxine dose from home 150 g RLE sensation of tightness/pain - Doppler US to r/o DVT DVT prop Coumadin Discussed with patient, nursing staff and Dr. Horvath Problem Qualifiers (1) Depression: Qualified Code: F33.1 - Moderate episode of recurrent major depressive disorder Marina Morris February 16, 2017 15:10
[2017-02-16] MEDS ORDERED: WARFARIN SOD 1 MG TAB PO SCH (16:00)
[2017-02-16] MEDS: WARFARIN SOD 5 MG TAB PO SCH (17:23)
[2017-02-16 17:46] VITALS: BP 161/75; PULSE 60; RESP 18; TEMP 98.3; O2SAT 98
[2017-02-16] MEDS ORDERED: amLODIPine BESYLATE 5 MG TAB PO ONE (19:00)
[2017-02-16] MEDS: LORazepam 0.5 MG TAB PO SCH (20:03)
[2017-02-16] MEDS: traZODone HCL 100 MG TAB PO SCH (20:03)
[2017-02-17] MEDS: diphenhydrAMINE HCL 50 MG CAP PO PRN (02:30)
[2017-02-17 04:55] VITALS: BP 137/73; PULSE 63; RESP 16; TEMP 97.6; O2SAT 96
[2017-02-17] MEDS: LEVOTHYROXINE SODIUM 150 MCG TAB PO SCH (06:22)
[2017-02-17 08:28] LABS: INTERNATIONAL NORMALIZED RATIO 1.3 RATIO
[2017-02-17] MEDS: DOCUSATE SODIUM 50 MG/SENNA 8.6 MG TAB PO SCH (08:44)
[2017-02-17] MEDS: amLODIPine BESYLATE 5 MG TAB PO SCH (08:44)
[2017-02-17] MEDS: LISINOPRIL 5 MG TAB PO SCH (08:45)
[2017-02-17] MEDS: PANTOPRAZOLE SOD 40 MG DELAYED RELEASE TAB PO SCH (08:47)
[2017-02-17] MEDS: METOPROLOL SUCCINATE 25 MG EXTENDED RELEASE TAB PO SCH (08:48)
[2017-02-17] MEDS: PRAVASTATIN SOD 40 MG TAB PO SCH (08:48)
[2017-02-17] MEDS: glipiZIDE 5 MG TAB PO SCH (08:48)
[2017-02-17 08:53] LABS: BICARBONATE 29.6 MEQ/L (21.0-32.0); POTASSIUM 4.1 MEQ/L (3.5-5.1)
[2017-02-17] MEDS: TOLTERODINE TARTRATE 4 MG CAP LA PO SCH (09:00)
[2017-02-17] MEDS: OFLOXACIN 0.3% OPTH SOLN 5 ML BTL RIGHT EYE SCH (09:00)
[2017-02-17] MEDS: FLUoxetine HCL 20 MG CAP PO SCH (12:00)
--- NOTE | 2017-02-17 13:18 | HHI.PYPN ---
Subjective Remarks Patient was seen and case discussed with nursing. Patient is pleasant and cooperative with exam. Interviewed in bed. Spending her time reading a book. Describes her mood is improving. Denies suicidal ideation intent or plan. Mildly irritable this morning per nursing. Tolerating her medications well. Think she has a yeast infection Objective Alert: Yes [place]: Person, Place, Date, Situation Mood: Depressed Affect: Restricted Memory Intact: Comment (fair) Hallucinations: Other (denies) Delusions: No Delusion Type: Other (none) Suicidal: Ideation (denies today) Homicidal: Ideation (denies) Insight/Judgment Fair Labs Test 02/17/17 07:35 Prothrombin Time 14.0 SEC Prothromb Time International 1.3 RATIO Ratio Sodium Level 140 MEQ/L Potassium Level 4.1 MEQ/L Chloride Level 102 MEQ/L Carbon Dioxide Level 29.6 MEQ/L Anion Gap 8 MEQ/L Blood Urea Nitrogen 33 MG/DL Creatinine 1.22 MG/DL Estimat Glomerular Filtration 43 ML/MIN Rate Random Glucose 141 MG/DL Calcium Level 9.6 MG/DL Date/Time Procedure Status Source Growth 02/16/17 09:13 Urine Culture - Preliminary Resulted Urine Clean Catch IMMATURE GROWTH - REINCUBATE Vitals/IOs Vital Signs Date Time Temp Pulse Resp B/P Pulse Ox O2 Delivery O2 Flow Rate FiO2 02/17/17 04:55 97.6 63 16 137/73 96 02/14/17 14:36 Room Air Intake and Output 02/16/17 02/16/17 02/17/17 08:00 16:00 00:00 Intake Total 600 ml 1440 ml Balance 600 ml 1440 ml Assessment & Plan Problem List: (1) History of post traumatic stress disorder ICD Code: Z86.59 (2) Severe recurrent major depression without psychotic features ICD Code: F33.2 Assessment & Plan Continue current treatment plan Justification for Cont. Inpt. Patient will decompensate in a less restrictive setting Request HC Surrog/Guard Advoc?: No Kirk Craven DO February 17, 2017 13:17
[2017-02-17] MEDS: WARFARIN SOD 5 MG TAB PO SCH (16:00)
[2017-02-17] MEDS ORDERED: WARFARIN SOD 2 MG TAB PO ONE (16:00)
--- NOTE | 2017-02-17 16:13 | RADRPT ---
EXAM DATE/TIME: 02/17/2017 15:17 [place] COMPARISON: No previous studies available for comparison. INDICATIONS : Right leg pain. MEDICAL HISTORY : Renal calculi. COPD. Afib. Stage II chronic renal disease. Diabetes. Graves disease. Depression. Anticoagulant therapy, Warfarin. SURGICAL HISTORY : Cholecystectomy. Hysterectomy. Right eye cataract. Bilateral knee replacements. Esophagus dialation . ENCOUNTER: Initial ACUITY: 2 day PAIN SCORE: 2/10 LOCATION: Right leg. TECHNIQUE: Venous ultrasound of the leg was performed from the inguinal ligament to the proximal calf. Real-darrion e, color Doppler and spectral tracing, compression and augmentation techniques were used. FINDINGS: There is normal compressibility of the deep venous system from the inguinal region to the proximal ca lf. No echogenic clot is seen in the lumen of the common femoral, femoral, popliteal, and posterior tibial veins. There is a normal response of the venous system to proximal and distal augmentation an d respiration. CONCLUSION: No DVT. Reed Dunbar MD on February 17, 2017 at 16:10 Board Certified Radiologist. This report was verified electronically.
[2017-02-17 16:35] VITALS: BP 129/68; PULSE 59; RESP 18; TEMP 97.3
[2017-02-17] MEDS: buPROPion HCL 150 MG SUSTAINED RELEASE TAB PO SCH ×2 (17:00→21:02)
[2017-02-17] MEDS: traZODone HCL 100 MG TAB PO SCH (21:02)
[2017-02-17] MEDS: LORazepam 0.5 MG TAB PO SCH (21:03)
[2017-02-18 05:53] VITALS: BP 139/65; PULSE 62; RESP 18; TEMP 97.4; O2SAT 95
[2017-02-18] MEDS: LEVOTHYROXINE SODIUM 150 MCG TAB PO SCH (06:14)
[2017-02-18] MEDS: buPROPion HCL 150 MG SUSTAINED RELEASE TAB PO SCH ×2 (08:27→20:37)
[2017-02-18] MEDS: TOLTERODINE TARTRATE 4 MG CAP LA PO SCH (08:27)
[2017-02-18] MEDS: amLODIPine BESYLATE 5 MG TAB PO SCH (08:28)
[2017-02-18] MEDS: PRAVASTATIN SOD 40 MG TAB PO SCH (08:29)
[2017-02-18] MEDS: LISINOPRIL 5 MG TAB PO SCH (08:29)
[2017-02-18] MEDS: DOCUSATE SODIUM 50 MG/SENNA 8.6 MG TAB PO SCH (08:30)
[2017-02-18] MEDS: PANTOPRAZOLE SOD 40 MG DELAYED RELEASE TAB PO SCH (08:30)
[2017-02-18 08:56] LABS: AUTOMATED NEUTROPHIL # 2.1 TH/MM3 (1.8-7.7); BASOPHIL % 0.8 % (0.0-2.0); EOSINOPHIL # 0.1 TH/MM3 (0-0.4); EOSINOPHIL % 2.3 % (0.0-4.0); HEMATOCRIT 38.1 % (35.0-46.0); HEMO FLAGS DIFF FINAL; MEAN CELL VOLUME 80.6 FL (80.0-100.0); MEAN CORPUSCULAR HEMOGLOBIN 26.4 PG (27.0-34.0); MEAN CORPUSCULAR HGB CONC 32.8 % (32.0-36.0); NEUT % 60.9 % (16.0-70.0); PLATELET COUNT 140 TH/MM3 (150-450); RED BLOOD COUNT 4.73 MIL/MM3 (4.00-5.30); RED CELL DISTRIBUTION WIDTH 13.5 % (11.6-17.2); WHITE BLOOD COUNT 3.5 TH/MM3 (4.0-11.0)
[2017-02-18] MEDS: traMADol HCL 50 MG TAB PO SCH (09:00)
[2017-02-18] MEDS: METOPROLOL SUCCINATE 25 MG EXTENDED RELEASE TAB PO SCH (09:00)
[2017-02-18] MEDS: glipiZIDE 5 MG TAB PO SCH (09:00)
[2017-02-18] MEDS: OFLOXACIN 0.3% OPTH SOLN 5 ML BTL RIGHT EYE SCH (09:00)
[2017-02-18 09:02] LABS: INTERNATIONAL NORMALIZED RATIO 1.4 RATIO; PROTHROMBIN TIME - PATIENT 15.6 SEC (9.8-11.6)
[2017-02-18 09:24] LABS: BICARBONATE 29.2 MEQ/L (21.0-32.0); POTASSIUM 4.5 MEQ/L (3.5-5.1)
[2017-02-18] MEDS: FLUoxetine HCL 20 MG CAP PO SCH (11:51)
--- NOTE | 2017-02-18 14:03 | HHI.PYPN ---
Subjective Remarks Patient was seen and case discussed with nursing. Patient is pleasant and cooperative with exam. Resting comfortably in bed. Vomited once today. Continues to be seen by the medical team. Medications were reviewed and Wellbutrin has a chance of increasing INR. INR is not elevated at this time however. Mood is improving. She denies suicidal ideation intent or plan. Objective Alert: Yes [place]: Person, Place, Date, Situation Mood: Depressed Affect: Blunted Memory Intact: Comment (fair) Hallucinations: Other (denies) Delusions: No Delusion Type: Other (none) Suicidal: Ideation (denies today) Homicidal: Ideation (denies) Insight/Judgment Improving Labs Test 02/18/17 08:29 White Blood Count 3.5 TH/MM3 Red Blood Count 4.73 MIL/MM3 Hemoglobin 12.5 GM/DL Hematocrit 38.1 % Mean Corpuscular Volume 80.6 FL Mean Corpuscular Hemoglobin 26.4 PG Mean Corpuscular Hemoglobin 32.8 % Concent Red Cell Distribution Width 13.5 % Platelet Count 140 TH/MM3 Mean Platelet Volume 7.9 FL Neutrophils (%) (Auto) 60.9 % Lymphocytes (%) (Auto) 28.0 % Monocytes (%) (Auto) 8.0 % Eosinophils (%) (Auto) 2.3 % Basophils (%) (Auto) 0.8 % Neutrophils # (Auto) 2.1 TH/MM3 Lymphocytes # (Auto) 1.0 TH/MM3 Monocytes # (Auto) 0.3 TH/MM3 Eosinophils # (Auto) 0.1 TH/MM3 Basophils # (Auto) 0.0 TH/MM3 CBC Comment DIFF FINAL Differential Comment Prothrombin Time 15.6 SEC Prothromb Time International 1.4 RATIO Ratio Sodium Level 138 MEQ/L Potassium Level 4.5 MEQ/L Chloride Level 101 MEQ/L Carbon Dioxide Level 29.2 MEQ/L Anion Gap 8 MEQ/L Blood Urea Nitrogen 32 MG/DL Creatinine 1.31 MG/DL Estimat Glomerular Filtration 39 ML/MIN Rate Random Glucose 210 MG/DL Calcium Level 9.4 MG/DL Date/Time Procedure Status Source Growth 02/16/17 09:13 Urine Culture - Final Complete Urine Clean Catch 50-100,000 CFU/ML MIXED GRAM POSITIVE... Vitals/IOs Vital Signs Date Time Temp Pulse Resp B/P Pulse Ox O2 Delivery O2 Flow Rate FiO2 02/18/17 05:53 97.4 62 18 139/65 95 02/14/17 14:36 Room Air Assessment & Plan Problem List: (1) History of post traumatic stress disorder ICD Code: Z86.59 (2) Severe recurrent major depression without psychotic features ICD Code: F33.2 Assessment & Plan Continue current treatment plan Justification for Cont. Inpt. Patient will decompensate in a less restrictive setting Request HC Surrog/Guard Advoc?: No Kirk Craven DO February 18, 2017 14:03
[2017-02-18] MEDS: hydrOXYzine HCL 50 MG TAB PO PRN (15:25)
[2017-02-18] MEDS: WARFARIN SOD 5 MG TAB PO SCH (15:51)
[2017-02-18] MEDS ORDERED: WARFARIN SOD 2 MG TAB PO ONE (16:00)
[2017-02-18] MEDS ORDERED: DEXTROSE 50% IN WATER 50 ML VIAL(D50) IV PRN (16:30)
[2017-02-18] MEDS ORDERED: GLUCAGON 1 MG/ML VIAL OTHER PRN (16:30)
--- NOTE | 2017-02-18 16:32 | HHI.PR ---
Subjective Remarks Follow up on patient with HTN, DM type 2, CKD stage 2, COPD and afib on Coumadin. Patient seen and examined today. Patient had 2 episodes of nonbloody nonbilious vomiting with associated abdominal pain following breakfast. Patients abdominal pain resolved after vomiting. Able to tolerate all of lunch without any recurrence. Patient states she feels well presently. No fever or chills. No cough or sputum production. No dizziness, headache, vision changes, chest pain or SOB. Denies any hematuria or dysuria. (+)BM yesterday. Denies any melena or hematochezia. Objective Vitals Vital Signs Date Time Temp Pulse Resp B/P Pulse Ox O2 Delivery O2 Flow Rate FiO2 02/18/17 05:53 97.4 62 18 139/65 95 02/17/17 16:35 97.3 02/17/17 16:35 97.3 59 18 129/68 Result Diagram: 02/18/17 0829 02/18/17 0829 Imaging Last Impressions Lower Extremity Ultrasound 02/17/17 0000 Signed Impressions: Service Date/Time: Friday, February 17, 2017 15:17 - CONCLUSION: No DVT. Reed Dunbar MD Objective Remarks GENERAL: This is a well-nourished, well-developed patient, in no apparent distress. Awake and alert. Pleasant and cooperative. SKIN: Moist, erythematous rash under pendulous abdomen and groin area. Warm and dry. HEENT: Atraumatic. Normocephalic. EOMI. No scleral icterus. No injection or drainage. MMM. CARDIOVASCULAR: Regular rate and rhythm without murmurs, gallops, or rubs. RESPIRATORY: Clear to auscultation. Breath sounds equal bilaterally. No wheezes , rales, or rhonchi. GASTROINTESTINAL: Abdomen soft, nondistended. (+)mild tenderness to palpation of left upper and lower quadrant and suprapubic area. Bowel sounds active 4. MUSCULOSKELETAL: Extremities without clubbing, cyanosis, or edema. Right calf supple. NTTP. Distal pulses 2+. NEUROLOGICAL: Awake and alert. Oriented x 3. Motor and sensory grossly within normal limits. Normal speech. Medications and IVs Current Medications Medications (Trade) Dose Ordered Sig/Jennifer Route Start Time Stop Time Status Last Admin (Benadryl) 50 mg HS PRN PO 02/14/17 21:00 02/17/17 02:30 (Milk Of Magnesia Liq) 30 ml DAILY PRN PO 02/14/17 15:00 (Mag-Al Plus Susp Liq) 30 ml Q6H PRN PO 02/14/17 15:00 (Atarax) 50 mg Q6H PRN PO 02/14/17 15:00 02/18/17 15:25 (Glucotrol) 2.5 mg DAILY PO 02/14/17 15:00 02/18/17 09:00 (Synthroid) 150 mcg DAILY@06 PO 02/15/17 06:00 02/18/17 06:14 (Prinivil) 5 mg DAILY PO 02/14/17 15:00 02/18/17 08:29 (Ativan) 0.5 mg HS PO 02/14/17 21:00 02/17/17 21:03 (Toprol Xl) 25 mg DAILY PO 02/14/17 15:00 02/18/17 09:00 (Ocuflox 0.3% Opth Soln) 1 drop DAILY RIGHT EYE 02/14/17 16:00 02/18/17 09:00 (Protonix) 40 mg DAILY PO 02/14/17 15:00 02/18/17 08:30 (Pravachol) 40 mg DAILY PO 02/14/17 15:00 02/18/17 08:29 (Nita-Colace) 1 tab DAILY PO 02/14/17 15:00 02/18/17 08:30 (Ultram) 50 mg DAILY PO 02/14/17 15:00 02/16/17 09:36 (Desyrel) 300 mg HS PO 02/14/17 21:00 02/17/17 21:02 Non-Formulary Medication 1 drop DAILY RIGHT EYE 02/14/17 14:15 Hold (PROzac) 40 mg DAILY@12 PO 02/15/17 12:00 02/18/17 11:51 Non-Formulary Medication 1 drop DAILY RIGHT EYE 02/14/17 14:15 Hold (Detrol La) 4 mg DAILY PO 02/15/17 09:00 02/18/17 08:27 Warfarin Sodium 5 mg 5 mg DAILY@1600 PO 02/15/17 16:00 02/18/17 15:51 (Coumadin Consult Pharmacy) 0 ml @ 0 mls/hr UNSCH OTHER 02/14/17 18:00 (Tylenol) 650 mg Q4H PRN PO 02/15/17 12:00 02/16/17 12:34 (Catapres) 0.1 mg Q6H PRN PO 02/15/17 18:00 (Norvasc) 5 mg DAILY PO 02/17/17 09:00 02/18/17 08:28 (Wellbutrin Sr) 150 mg BID PO 02/17/17 17:00 02/18/17 08:27 A/P Problem List: (1) History of post traumatic stress disorder ICD Code: Z86.59 Status: Chronic (2) Severe recurrent major depression without psychotic features ICD Code: F33.2 Status: Acute (3) Depression ICD Code: F32.9 Status: Acute (4) DM2 (diabetes mellitus, type 2) ICD Code: E11.9 Status: Chronic (5) HLD (hyperlipidemia) ICD Code: E78.5 Status: Chronic (6) HTN (hypertension) ICD Code: I10 Status: Chronic (7) Hypothyroidism ICD Code: E03.9 Status: Chronic (8) MAYA (acute kidney injury) ICD Code: N17.9 Status: Acute Assessment and Plan Patient is a 76-year-old female with primary medical history of HTN, DM 2, CK D2 , COPD, A. fib on Coumadin who came into the hospital for evaluation of suicidal ideation. As per record, patient is a chronic history of depression and states that she's been feeling suicidal with no plans. She is now admitted to inpatient psychiatry unit for further evaluation. Consulted for medical management. Suicidal ideation, depression - managed by psychiatry team HTN, uncontrolled - well controlled presently, 139/65 - Continue home medications lisinopril 5 mg daily, metoprolol 25 mg daily - Clonidine when necessary - Monitor BP trend Acute kidney injury on CKD stage 2 - Reports history of chronic kidney disease stage II - creatinine 1.26 -> 1.29 -> 1.22 -> 1.31 - likely increase due to volume depletion s/p several vomiting episodes - avoid nephrotoxins - Will continue lisinopril 5 mg, kidney protectant - Encouraged by mouth fluid intake - BMP in am - Renal US ordered Diabetes mellitus 2 - Continue glipizide 2.5 mg daily - Hemoglobin A1c 6.2 - BS 210 - Insulin sliding scale - Monitor Accu-Cheks. Monitor for hypoglycemia. - Continue with diabetic diet A. fib, rate controlled - Continue Coumadin - INR subtherapeutic, pharmacy dosing. INR 1.3 -> 1.3 -> 1.4 - Continue to monitor. Possible UTI - h/o recurrent UTIs, previously on Macrobid - UA positive for small leukocytes and 6 WBCs - patient asymptomatic - Urine cx results show mixed jaxson, likely contaminant - repeat UA N/V and abdominal pain - ? etiology - resolved, able to tolerate lunch without recurrence - h/o previous cholecystectomy - afebrile, VSS - (+)BM yesterday - check UA - obtain LFTs Leukopenia and thrombocytopenia - uncertain etiology - consult hematology - trend CBC Candidiasis - Nystatin powder COPD, not in exacerbation - DuoNeb's when necessary Hypothyroidism - TSH 0.837 - continue levothyroxine dose from home 150 g RLE sensation of tightness/pain - Doppler US to r/o DVT - negative DVT prop Coumadin Discussed with patient, nursing staff and Dr. Horvath Problem Qualifiers (1) Depression: Qualified Code: F33.1 - Moderate episode of recurrent major depressive disorder Marina Morris February 18, 2017 16:32
[2017-02-18 17:10] LABS: INDIRECT BILIRUBIN 0.1 MG/DL (0.0-0.8); TOTAL BILIRUBIN ADULT 0.2 MG/DL (0.2-1.0)
--- NOTE | 2017-02-18 19:22 | MB ---
cc: MARINA BOLES,GALE Martinez M.D. DATE OF CONSULTATION: 02/18/2017. REASON FOR CONSULTATION / CHIEF COMPLAINT: Marina Najerawarren requested consultation for Ms. Seymour regarding leukopenia and thrombocytopenia. HISTORY OF PRESENT ILLNESS: Ms. Seymour is a 76-year-old woman with a major depressive disorder with recurrence, severe, without psychosis. 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 She is . She has two adult children. She is living with her adult daughter, the daughter's and two grandsons. She has had a stressful situation. She has had increasing symptoms of her depression and was advised to come into the hospital by her therapist. During her hospitalization, laboratory evaluation was performed. On 02/14/2016, white blood cell count was 3.2, MCV was low at 79.5, platelet count was 136,000. The repeat CBC on 02/16 shows the white blood cell count of 3.7, hemoglobin of 12.6, platelet count of 163,000 and on the day of consultation, 02/18/2017, white blood cell count was again low at 3.5, hemoglobin of 12.5 and platelet count 140,000. She has a mild monocytosis but no neutropenia. Her differential appears to be largely normal. Her mean platelet volume is normal. Hematology/oncology has been consulted for the leukopenia and thrombocytopenia, which is mild. Ms. Seymour reports that she is not aware of the leukopenia and thrombocytopenia from before. She reports having a history of Sena's esophagus. She attributes her nausea and vomiting this morning related to gas. She has atrial fibrillation that is well-controlled. She is not aware of the fibrillation. She is on chronic anticoagulant therapy with Coumadin. She denies any bleeding associated with Coumadin. She has had no bleeding despite the nausea and vomiting. She reports an upper endoscopy previously showing the Sena's esophagus. She is on a proton pump inhibitor during her hospitalization. She is not on pharmacologic DVT prophylaxis. She is ambulatory. PAST MEDICAL HISTORY: 1. Hypertension. 2. Atrial fibrillation controlled on anticoagulant therapy with coumadin. 3. Diabetes type 2. 4. Chronic kidney disease. 5. Nephrolithiasis. 6. COPD. 7. Chronic microscopic hematuria. 8. Sena's esophagus. PAST SURGICAL HISTORY: 1. Cholecystectomy. 2. Cataract surgery. FAMILY HISTORY: Family history is significant for mother with breast cancer and of congestive heart failure and complications of diabetes in her 70s. Father of oat cell lung cancer in his late 60s. SOCIAL HISTORY: She is . She lives with her daughter. She denies any tobacco, alcohol or illicit drug use. She smoked tobacco during her nursing years for about a year. PHYSICAL EXAMINATION: VITAL SIGNS: Temperature 97.4, heart rate 62, respiratory rate 18, blood pressure 139/65, saturation 95%. GENERAL: Ms. Seymour is a well-developed elderly woman who looks her stated age. She looks depressed. She is lying down at the consultation. HEAD, EYES, EARS, NOSE, THROAT: Her pupils are round and reactive to light and accommodation. Her oropharynx is clear. Mouth with poor dentition. NECK: The neck is supple. LUNGS: Clear to auscultation. CARDIOVASCULAR: Mild bradycardia. Rate controlled. ABDOMEN: Benign. LOWER EXTREMITIES: No edema. NEUROLOGICAL EXAMINATION: Nonfocal. She is awake, alert, oriented with normal speech. She is cooperative. LABORATORY STUDIES: Labs as described above. BUN of 32, creatinine 1.31. Albumin is 3.3. Bilirubin is normal. Liver functions normal. ASSESSMENT AND PLAN: Ms. Seymour is a 76-year-old woman with multiple medical problems described above. She has admission for depression. She has renal insufficiency and was found to have leukopenia and thrombocytopenia, mild. I discussed with Ms. Seymour the above findings. I recommend no specific therapy for the cytopenia. I expressed concern about her history of anemia. Furthermore, her MCV is in the lower limits of normal. I will check iron studies to rule out iron deficiency. This is concerning in light of her reported history of Sena's esophagus. This may be the etiology of the iron loss. Furthermore, if she is on proton pump inhibitors regularly for the Sena's esophagus, iron absorption is impaired. Recommend no specific therapy for the leukopenia and thrombocytopenia. Peripheral smear will be reviewed by pathology. I am unable to exclude drug effect. Since she is asymptomatic from the cytopenias, no treatment change is required. Iron deficiency is confirmed and this will be treated to improve her symptoms and improve her symptoms of well-being to thereby assist in making her feel less depressed. Her questions were answered to her satisfaction. MD VIKTORIYA Duran/JOSE /6:59 PM /7:08 PM
[2017-02-18 20:32] VITALS: BP 168/81; PULSE 59; RESP 18; TEMP 97.3; O2SAT 97
[2017-02-18] MEDS: traZODone HCL 100 MG TAB PO SCH (20:37)
[2017-02-18] MEDS: diphenhydrAMINE HCL 50 MG CAP PO PRN (20:37)
[2017-02-18] MEDS: LORazepam 0.5 MG TAB PO SCH (20:37)
[2017-02-18] MEDS: INSULIN ASPART SUPPLEMENTAL SCALE SQ SCH (20:42)
[2017-02-18] MEDS: NYSTATIN 100,000 U/GM PWD 15 GM BTL TOPICAL SCH (20:47)
[2017-02-18] MEDS: ACETAMINOPHEN 325 MG TAB PO PRN (21:36)
--- NOTE | 2017-02-18 22:02 | RADRPT ---
EXAM DATE/TIME: 02/18/2017 20:46 [facility] COMPARISON: No previous studies available for comparison. INDICATIONS : Increased BUN/Creatinine. MEDICAL HISTORY : Renal calculi. Chronic obstructive pulmonary disease. Afib. Stage II chronic renal disease. Diabete s. Graves disease. Depression. Anticoagulant therapy, Warfarin. SURGICAL HISTORY : Hysterectomy. Cholecystectomy. Right cataract removal. Bilateral knee replacements. Esophageal dial ation. ENCOUNTER: Initial ACUITY: 1 day PAIN SCORE: 0/10 LOCATION: Bilateral flank MEASUREMENTS: RIGHT KIDNEY: 19.4 x 8.5 x 7.7 cm LEFT KIDNEY: 16.2 x 7.9 x 7.4 cm FINDINGS: Kidneys are enlarged related to bilateral cysts that measure up to 9 cm on both sides. There is gener alized cortical thinning and elevated parenchymal echogenicity. No hydronephrosis seen on either side . Urinary bladder non-distended and within normal limits. CONCLUSION: 1. Chronic appearing parenchymal disease with diffuse cortical thinning and elevated parenchymal echo genicity. 2. No obstructive uropathy or other acute abnormality. 3. Numerous bilateral renal cysts measuring up to 9 cm in size. 4. Urinary bladder within normal limits. Reed Rico MD on February 18, 2017 at 21:58 Board Certified Radiologist. This report was verified electronically.
[2017-02-19 05:38] VITALS: BP 116/68; PULSE 57; RESP 16; TEMP 97.5; O2SAT 98
[2017-02-19] MEDS: LEVOTHYROXINE SODIUM 150 MCG TAB PO SCH (05:51)
[2017-02-19] MEDS: INSULIN ASPART SUPPLEMENTAL SCALE SQ SCH ×4 (06:01→20:36)
[2017-02-19 08:05] LABS: AUTOMATED NEUTROPHIL # 1.9 TH/MM3 (1.8-7.7); BASOPHIL % 0.8 % (0.0-2.0); EOSINOPHIL # 0.1 TH/MM3 (0-0.4); EOSINOPHIL % 1.9 % (0.0-4.0); HEMATOCRIT 36.9 % (35.0-46.0); HEMO FLAGS DIFF FINAL; LYMPH % 37.6 % (9.0-44.0); LYMPHOCYTE # 1.4 TH/MM3 (1.0-4.8); MEAN CORPUSCULAR HEMOGLOBIN 26.5 PG (27.0-34.0); MEAN CORPUSCULAR HGB CONC 33.1 % (32.0-36.0); NEUT % 51.7 % (16.0-70.0); PLATELET COUNT 153 TH/MM3 (150-450); RED BLOOD COUNT 4.61 MIL/MM3 (4.00-5.30); RED CELL DISTRIBUTION WIDTH 13.6 % (11.6-17.2); WHITE BLOOD COUNT 3.7 TH/MM3 (4.0-11.0)
[2017-02-19 08:07] LABS: RETIC % 1.7 % (0.4-3.0); REVIEW FLAG FINAL
[2017-02-19 08:11] LABS: INTERNATIONAL NORMALIZED RATIO 1.6 RATIO; PROTHROMBIN TIME - PATIENT 18.1 SEC (9.8-11.6)
[2017-02-19 08:36] LABS: ANION GAP 7 MEQ/L (5-15); BICARBONATE 31.2 MEQ/L (21.0-32.0); BLOOD UREA NITROGEN 32 MG/DL (7-18); CHLORIDE 101 MEQ/L (98-107); GLOMERULAR FILTRATION RATE 45 ML/MIN (>89); POTASSIUM 4.4 MEQ/L (3.5-5.1); SODIUM (NA) 139 MEQ/L (136-145); TRANSFERRIN IRON PROFILE 242 MG/DL (200-360)
[2017-02-19] MEDS: TOLTERODINE TARTRATE 4 MG CAP LA PO SCH (08:50)
[2017-02-19] MEDS: glipiZIDE 5 MG TAB PO SCH (08:50)
[2017-02-19] MEDS: METOPROLOL SUCCINATE 25 MG EXTENDED RELEASE TAB PO SCH (08:50)
[2017-02-19] MEDS: PRAVASTATIN SOD 40 MG TAB PO SCH (08:51)
[2017-02-19] MEDS: DOCUSATE SODIUM 50 MG/SENNA 8.6 MG TAB PO SCH (08:51)
[2017-02-19] MEDS: amLODIPine BESYLATE 5 MG TAB PO SCH (08:51)
[2017-02-19] MEDS: PANTOPRAZOLE SOD 40 MG DELAYED RELEASE TAB PO SCH (08:51)
[2017-02-19] MEDS: LISINOPRIL 5 MG TAB PO SCH (08:51)
[2017-02-19] MEDS: NYSTATIN 100,000 U/GM PWD 15 GM BTL TOPICAL SCH ×2 (08:51→21:01)
[2017-02-19] MEDS: buPROPion HCL 150 MG SUSTAINED RELEASE TAB PO SCH ×2 (08:51→21:01)
[2017-02-19] MEDS: OFLOXACIN 0.3% OPTH SOLN 5 ML BTL RIGHT EYE SCH (09:00)
[2017-02-19] MEDS: traMADol HCL 50 MG TAB PO SCH (09:00)
[2017-02-19 09:01] LABS: FERRITIN 21 NG/ML (8-252)
[2017-02-19] MEDS: FLUoxetine HCL 20 MG CAP PO SCH (11:13)
--- NOTE | 2017-02-19 13:09 | PD.ONC.PN ---
Subjective Subjective Remarks Afebrile overnight. Patient resting comfortably in her room in nad. Denies bleeding or abdominal pain. Objective Data Date Time Temp Pulse Resp B/P Pulse Ox O2 Delivery O2 Flow Rate FiO2 02/19/17 05:38 97.5 57 16 116/68 98 02/18/17 20:32 97.3 59 18 168/81 97 Result Diagram: 02/19/17 0649 02/19/17 0649 Laboratory Results Laboratory Tests Test 02/19/17 06:49 White Blood Count 3.7 TH/MM3 Red Blood Count 4.61 MIL/MM3 Hemoglobin 12.2 GM/DL Hematocrit 36.9 % Mean Corpuscular Volume 80.0 FL Mean Corpuscular Hemoglobin 26.5 PG Mean Corpuscular Hemoglobin 33.1 % Concent Red Cell Distribution Width 13.6 % Platelet Count 153 TH/MM3 Mean Platelet Volume 8.2 FL Neutrophils (%) (Auto) 51.7 % Lymphocytes (%) (Auto) 37.6 % Monocytes (%) (Auto) 8.0 % Eosinophils (%) (Auto) 1.9 % Basophils (%) (Auto) 0.8 % Neutrophils # (Auto) 1.9 TH/MM3 Lymphocytes # (Auto) 1.4 TH/MM3 Monocytes # (Auto) 0.3 TH/MM3 Eosinophils # (Auto) 0.1 TH/MM3 Basophils # (Auto) 0.0 TH/MM3 CBC Comment DIFF FINAL Differential Comment Blood Smear Pathologist Review Reticulocyte Count 1.7 % Absolute Reticulocyte Count 78.0 MIL/L Prothrombin Time 18.1 SEC Prothromb Time International 1.6 RATIO Ratio Sodium Level 139 MEQ/L Potassium Level 4.4 MEQ/L Chloride Level 101 MEQ/L Carbon Dioxide Level 31.2 MEQ/L Anion Gap 7 MEQ/L Blood Urea Nitrogen 32 MG/DL Creatinine 1.16 MG/DL Estimat Glomerular Filtration 45 ML/MIN Rate Random Glucose 110 MG/DL Calcium Level 9.2 MG/DL Iron Level 55 MCG/DL Total Iron Binding Capacity 339 MCG/DL Percent Iron Saturation 16.2 % Ferritin 21 NG/ML Vitamin B12 Level 523 PG/ML Administered Medications Medications (Trade) Dose Ordered Sig/Jennifer Route PRN Reason Start Time Stop Time Status Last Admin Dose Admin Diphenhydramine HCl (Benadryl) 50 mg HS PRN PO INSOMNIA 02/14/17 21:00 02/17/17 02:30 Al Hydrox/Mg Hydrox/Simethicone (Mag-Al Plus Susp Liq) 30 ml Q6H PRN PO DYSPEPSIA 02/14/17 15:00 02/18/17 22:39 Hydroxyzine HCl (Atarax) 50 mg Q6H PRN PO ANXIETY 02/14/17 15:00 02/18/17 15:25 Glipizide (Glucotrol) 2.5 mg DAILY PO 02/14/17 15:00 02/19/17 08:50 Levothyroxine Sodium (Synthroid) 150 mcg DAILY@06 PO 02/15/17 06:00 02/19/17 05:51 Lisinopril (Prinivil) 5 mg DAILY PO 02/14/17 15:00 02/19/17 08:51 Lorazepam (Ativan) 0.5 mg HS PO 02/14/17 21:00 02/18/17 20:37 Metoprolol Succinate (Toprol Xl) 25 mg DAILY PO 02/14/17 15:00 02/19/17 08:50 Ofloxacin (Ocuflox 0.3% Opth Soln) 1 drop DAILY RIGHT EYE 02/14/17 16:00 02/18/17 09:00 Pantoprazole Sodium (Protonix) 40 mg DAILY PO 02/14/17 15:00 02/19/17 08:51 Pravastatin Sodium (Pravachol) 40 mg DAILY PO 02/14/17 15:00 02/19/17 08:51 Senna/Docusate Sodium (Nita-Colace) 1 tab DAILY PO 02/14/17 15:00 02/19/17 08:51 Tramadol HCl (Ultram) 50 mg DAILY PO 02/14/17 15:00 02/16/17 09:36 Trazodone HCl (Desyrel) 300 mg HS PO 02/14/17 21:00 02/18/17 20:37 Fluoxetine HCl (PROzac) 40 mg DAILY@12 PO 02/15/17 12:00 02/19/17 11:13 Tolterodine Tartrate (Detrol La) 4 mg DAILY PO 02/15/17 09:00 02/19/17 08:50 Warfarin Sodium (Coumadin) 5 mg DAILY@1600 PO 02/15/17 16:00 02/18/17 15:51 Acetaminophen (Tylenol) 650 mg Q4H PRN PO Pain 1-5 or Temp >101F 02/15/17 12:00 02/18/17 21:36 Amlodipine Besylate (Norvasc) 5 mg DAILY PO 02/17/17 09:00 02/19/17 08:51 Bupropion HCl (Wellbutrin Sr) 150 mg BID PO 02/17/17 17:00 02/19/17 08:51 Nystatin (Mycostatin Powder) 1 applic Q12HR TOPICAL 02/18/17 21:00 02/19/17 08:51 Objective Remarks GENERAL: Elderly female, sitting up in bed in nad. SKIN: Warm and dry. HEAD: Normocephalic. EYES: No injection or drainage. NECK: Supple, trachea midline. CARDIOVASCULAR: Regular rate and rhythm RESPIRATORY: Breath sounds equal bilaterally. No accessory muscle use. GASTROINTESTINAL: Abdomen soft, non-tender, nondistended. MUSCULOSKELETAL: No cyanosis, or edema. Assessment/Plan Assessment 76y/o female with leukopenia and thrombocytopenia. h/o major depressive disorder with recurrence, severe, without psychosis. history of Sena's esophagus. atrial fibrillation (on coumadin) Diabetes type 2. Chronic kidney disease. Nephrolithiasis. COPD. Chronic microscopic hematuria. Plan 1. mild thrombocytopenia and leukopenia: monitor. no intervention recommended 2. h/o anemia with low normal MCV: will start oral ferrous sulfate 325mg PO BID 3. Hematology will sign off. please call or reconsult if needed. Attending Statement Agree with above, thrombocytopenia resolved, leukopenia asymptomatic, suggest fu w/ oncology on out patient basis. Alivia Melendrez February 19, 2017 13:09 Fiorella Colon MD February 19, 2017 18:22
--- NOTE | 2017-02-19 14:55 | HHI.PYPN ---
Subjective Remarks Patient seen in her room with nurse, chart review, patient continues sad but mood is improving she denies suicidality homicidality voices or visions. She is compliant with the medications. For now continue treatment Review of Systems Except as stated in HPI: all other systems reviewed are Neg Objective Alert: Yes Trent: Person, Place, Date, Situation Mood: Depressed Affect: Blunted Memory Intact: Comment (fair) Hallucinations: Other (denies) Delusions: No Delusion Type: Other (none) Suicidal: Ideation (denies today) Homicidal: Ideation (denies) Insight/Judgment Poor Labs Test 02/19/17 06:49 White Blood Count 3.7 TH/MM3 Red Blood Count 4.61 MIL/MM3 Hemoglobin 12.2 GM/DL Hematocrit 36.9 % Mean Corpuscular Volume 80.0 FL Mean Corpuscular Hemoglobin 26.5 PG Mean Corpuscular Hemoglobin 33.1 % Concent Red Cell Distribution Width 13.6 % Platelet Count 153 TH/MM3 Mean Platelet Volume 8.2 FL Neutrophils (%) (Auto) 51.7 % Lymphocytes (%) (Auto) 37.6 % Monocytes (%) (Auto) 8.0 % Eosinophils (%) (Auto) 1.9 % Basophils (%) (Auto) 0.8 % Neutrophils # (Auto) 1.9 TH/MM3 Lymphocytes # (Auto) 1.4 TH/MM3 Monocytes # (Auto) 0.3 TH/MM3 Eosinophils # (Auto) 0.1 TH/MM3 Basophils # (Auto) 0.0 TH/MM3 CBC Comment DIFF FINAL Differential Comment Blood Smear Pathologist Review Reticulocyte Count 1.7 % Absolute Reticulocyte Count 78.0 MIL/L Prothrombin Time 18.1 SEC Prothromb Time International 1.6 RATIO Ratio Sodium Level 139 MEQ/L Potassium Level 4.4 MEQ/L Chloride Level 101 MEQ/L Carbon Dioxide Level 31.2 MEQ/L Anion Gap 7 MEQ/L Blood Urea Nitrogen 32 MG/DL Creatinine 1.16 MG/DL Estimat Glomerular Filtration 45 ML/MIN Rate Random Glucose 110 MG/DL Calcium Level 9.2 MG/DL Iron Level 55 MCG/DL Total Iron Binding Capacity 339 MCG/DL Percent Iron Saturation 16.2 % Ferritin 21 NG/ML Vitamin B12 Level 523 PG/ML Date/Time Procedure Status Source Growth 02/16/17 09:13 Urine Culture - Final Complete Urine Clean Catch 50-100,000 CFU/ML MIXED GRAM POSITIVE... Vitals/IOs Vital Signs Date Time Temp Pulse Resp B/P Pulse Ox O2 Delivery O2 Flow Rate FiO2 02/19/17 05:38 97.5 57 16 116/68 98 Intake and Output 02/18/17 02/18/17 02/18/17 07:59 15:59 23:59 Intake Total 220 ml Balance 220 ml Assessment & Plan Problem List: (1) History of post traumatic stress disorder ICD Code: Z86.59 (2) Severe recurrent major depression without psychotic features ICD Code: F33.2 Assessment & Plan Estimated LOS: days patient depression somewhat lifting, compliant medications , for now continue treatment Justification for Cont. Inpt. At this time patient decompensate if placed in a lower level of care Discharge Planning To be determined Request HC Surrog/Guard Advoc?: Reed Kimball MD February 19, 2017 14:55
[2017-02-19] MEDS: WARFARIN SOD 5 MG TAB PO SCH (16:37)
--- NOTE | 2017-02-19 20:51 | HHI.PR ---
Subjective Remarks reconsulted for nausea and vomiting Patient had episode of nausea and vomiting last night associated w chest pain Patient states has lost 140 pounds - as per patient intentional denies melena , hematochezia Patient states chest pain was more like a burning and also stated felt like pressure stable vital signs all symptoms resolved Objective Vitals Vital Signs Date Time Temp Pulse Resp B/P Pulse Ox O2 Delivery O2 Flow Rate FiO2 02/19/17 05:38 97.5 57 16 116/68 98 I/O 02/18/17 02/18/17 02/18/17 02/19/17 02/19/17 02/19/17 06:59 14:59 22:59 06:59 14:59 22:59 Intake Total 220 ml Balance 220 ml Intake Oral 220 ml Result Diagram: 02/19/17 0649 02/19/17 0649 Imaging Last Impressions Renal Ultrasound 02/18/17 0000 Signed Impressions: Service Date/Time: Saturday, February 18, 2017 20:46 - CONCLUSION: 1. Chronic appearing parenchymal disease with diffuse cortical thinning and elevated parenchymal echogenicity. 2. No obstructive uropathy or other acute abnormality. 3. Numerous bilateral renal cysts measuring up to 9 cm in size. 4. Urinary bladder within normal limits. Reed Rico MD Lower Extremity Ultrasound 02/17/17 0000 Signed Impressions: Service Date/Time: Friday, February 17, 2017 15:17 - CONCLUSION: No DVT. Reed Dunbar MD Objective Remarks GENERAL: This is a well-nourished, well-developed patient, in no apparent distress. Awake and alert. SKIN: Moist, erythematous rash under pendulous abdomen and groin area. Warm and dry. HEENT: Atraumatic. Normocephalic. EOMI. No scleral icterus. No injection or drainage. MMM. CARDIOVASCULAR: Regular rate and rhythm without murmurs, gallops, or rubs. RESPIRATORY: Clear to auscultation. Breath sounds equal bilaterally. No wheezes , rales, or rhonchi. GASTROINTESTINAL: Abdomen soft, nondistended. (+)mild tenderness to palpation of left upper and lower quadrant and suprapubic area. Bowel sounds active 4. MUSCULOSKELETAL: Extremities without clubbing, cyanosis, or edema. Right calf supple. NTTP. Distal pulses 2+. NEUROLOGICAL: Awake and alert. Oriented to person, time, place. Motor and sensory grossly within normal limits. Normal speech. Medications and IVs Current Medications Medications (Trade) Dose Ordered Sig/Jennifer Route Start Time Stop Time Status Last Admin (Benadryl) 50 mg HS PRN PO 02/14/17 21:00 02/17/17 02:30 (Milk Of Magnesia Liq) 30 ml DAILY PRN PO 02/14/17 15:00 (Mag-Al Plus Susp Liq) 30 ml Q6H PRN PO 02/14/17 15:00 02/18/17 22:39 (Atarax) 50 mg Q6H PRN PO 02/14/17 15:00 02/18/17 15:25 (Glucotrol) 2.5 mg DAILY PO 02/14/17 15:00 02/19/17 08:50 (Synthroid) 150 mcg DAILY@06 PO 02/15/17 06:00 02/19/17 05:51 (Prinivil) 5 mg DAILY PO 02/14/17 15:00 02/19/17 08:51 (Ativan) 0.5 mg HS PO 02/14/17 21:00 02/18/17 20:37 (Toprol Xl) 25 mg DAILY PO 02/14/17 15:00 02/19/17 08:50 (Ocuflox 0.3% Opt Soln) 1 drop DAILY RIGHT EYE 02/14/17 16:00 02/18/17 09:00 (Protonix) 40 mg DAILY PO 02/14/17 15:00 02/19/17 08:51 (Pravachol) 40 mg DAILY PO 02/14/17 15:00 02/19/17 08:51 (Nita-Colace) 1 tab DAILY PO 02/14/17 15:00 02/19/17 08:51 (Ultram) 50 mg DAILY PO 02/14/17 15:00 02/16/17 09:36 (Desyrel) 300 mg HS PO 02/14/17 21:00 02/18/17 20:37 Non-Formulary Medication 1 drop DAILY RIGHT EYE 02/14/17 14:15 Hold (PROzac) 40 mg DAILY@12 PO 02/15/17 12:00 02/19/17 11:13 Non-Formulary Medication 1 drop DAILY RIGHT EYE 02/14/17 14:15 Hold (Detrol La) 4 mg DAILY PO 02/15/17 09:00 02/19/17 08:50 Warfarin Sodium 5 mg 5 mg DAILY@1600 PO 02/15/17 16:00 02/19/17 16:37 (Coumadin Consult Pharmacy) 0 ml @ 0 mls/hr UNSCH OTHER 02/14/17 18:00 (Tylenol) 650 mg Q4H PRN PO 02/15/17 12:00 02/18/17 21:36 (Catapres) 0.1 mg Q6H PRN PO 02/15/17 18:00 (Norvasc) 5 mg DAILY PO 02/17/17 09:00 02/19/17 08:51 (Wellbutrin Sr) 150 mg BID PO 02/17/17 17:00 02/19/17 08:51 (D50w (Vial) Inj) 50 ml UNSCH PRN IV 02/18/17 16:30 (Glucagon Inj) 1 mg UNSCH PRN OTHER 02/18/17 16:30 (Mycostatin Powder) 1 applic Q12HR TOPICAL 02/18/17 21:00 02/19/17 08:51 (Ferrous Sulfate) 325 mg BID PO 02/19/17 21:00 A/P Problem List: (1) History of post traumatic stress disorder ICD Code: Z86.59 Status: Chronic (2) Severe recurrent major depression without psychotic features ICD Code: F33.2 Status: Acute (3) Depression ICD Code: F32.9 Status: Acute (4) DM2 (diabetes mellitus, type 2) ICD Code: E11.9 Status: Chronic (5) HLD (hyperlipidemia) ICD Code: E78.5 Status: Chronic (6) HTN (hypertension) ICD Code: I10 Status: Chronic (7) Hypothyroidism ICD Code: E03.9 Status: Chronic (8) MAYA (acute kidney injury) ICD Code: N17.9 Status: Acute Assessment and Plan Patient is a 76-year-old female with primary medical history of HTN, DM 2, CK D2 , COPD, A. fib on Coumadin who came into the hospital for evaluation of suicidal ideation. As per record, patient is a chronic history of depression and states that she's been feeling suicidal with no plans. She is now admitted to inpatient psychiatry unit for further evaluation. Consulted for medical management. Suicidal ideation, depression - managed by psychiatry team HTN, uncontrolled - well controlled presently, 139/65 - Continue home medications lisinopril 5 mg daily, metoprolol 25 mg daily - Clonidine when necessary - Monitor BP trend Acute kidney injury on CKD stage 2 - Reports history of chronic kidney disease stage II - creatinine 1.26 -> 1.29 -> 1.22 -> 1.31 ->1.16 - likely increase due to volume depletion s/p several vomiting episodes - avoid nephrotoxins - Will continue lisinopril 5 mg, kidney protectant - Encouraged by mouth fluid intake - BMP in am - Renal US ordered --> shows chronic appearing parenchymal disease with diffuse cortical thinning and elevated parenchyma echogenicity. No obstructive uropathy or acute abnormality. Numerous bilateral renal cysts. Diabetes mellitus 2 - Continue glipizide 2.5 mg daily - Hemoglobin A1c 6.2 - BS 210 - Insulin sliding scale - Monitor Accu-Cheks. Monitor for hypoglycemia. - Continue with diabetic diet A. fib, rate controlled - Continue Coumadin - INR subtherapeutic, pharmacy dosing. INR 1.3 -> 1.3 -> 1.4 ->1.6 - Continue to monitor. Possible UTI - h/o recurrent UTIs, previously on Macrobid - UA positive for small leukocytes and 6 WBCs - patient asymptomatic - Urine cx results show mixed jaxson, likely contaminant - repeat UA ---> increased wbc's, fu culture. N/V and abdominal pain - ? etiology - resolved, able to tolerate lunch without recurrence - h/o previous cholecystectomy - afebrile, VSS - (+)BM yesterday - check UA - obtain LFTs Leukopenia and thrombocytopenia - uncertain etiology - Hematology consulted. - trend CBC - Hematology recommends not further workup for the leukopenia and thrombocytopenia. Anemia -Iron studies ordered, showed normal iron, TIBC and slight decreased percent saturation of 16.2 within normal ferritin of 21. Patient has been started on iron tablets as per hematology. Follow-up recommendations. Candidiasis - Nystatin powder COPD, not in exacerbation - DuoNeb's when necessary Hypothyroidism - TSH 0.837 - continue levothyroxine dose from home 150 g RLE sensation of tightness/pain - Doppler US to r/o DVT - negative Nausea and vomiting -Will consult gastroenterology fibrillation for EGD given and the patient has history of Sena's esophagitis and as per patient has not had an EGD in 3 years. Patient also has been experiencing some burning chest pain along with nausea and vomiting and reported weight loss of 140 pounds. Chest pain -Suspect chest pain is secondary to GERD and Sena's esophagus. However will obtain EKG and cardiac enzymes. DVT prop Coumadin Problem Qualifiers (1) Depression: Qualified Code: F33.1 - Moderate episode of recurrent major depressive disorder Larry Dudley MD February 19, 2017 20:51
[2017-02-19] MEDS: LORazepam 0.5 MG TAB PO SCH (21:01)
[2017-02-19] MEDS: FERROUS SULFATE 325 MG (65 MG ELEMENTAL IRON) TAB PO SCH (21:01)
[2017-02-19] MEDS: traZODone HCL 100 MG TAB PO SCH (21:01)
[2017-02-19 21:46] VITALS: BP 128/59; PULSE 63; RESP 18; TEMP 97.8; O2SAT 98
[2017-02-19 22:04] LABS: CREATINE KINASE 53 U/L (26-192)
[2017-02-20 04:34] LABS: CREATINE KINASE 43 U/L (26-192)
[2017-02-20 05:36] VITALS: BP 112/58; PULSE 65; RESP 16; TEMP 97.8; O2SAT 97
[2017-02-20] MEDS: LEVOTHYROXINE SODIUM 150 MCG TAB PO SCH (05:58)
[2017-02-20] MEDS: INSULIN ASPART SUPPLEMENTAL SCALE SQ SCH ×2 (06:17→11:00)
[2017-02-20] MEDS: METOPROLOL SUCCINATE 25 MG EXTENDED RELEASE TAB PO SCH (08:45)
[2017-02-20] MEDS: amLODIPine BESYLATE 5 MG TAB PO SCH (08:45)
[2017-02-20] MEDS: PANTOPRAZOLE SOD 40 MG DELAYED RELEASE TAB PO SCH (08:45)
[2017-02-20] MEDS: DOCUSATE SODIUM 50 MG/SENNA 8.6 MG TAB PO SCH (08:45)
[2017-02-20] MEDS: FERROUS SULFATE 325 MG (65 MG ELEMENTAL IRON) TAB PO SCH (08:45)
[2017-02-20] MEDS: LISINOPRIL 5 MG TAB PO SCH (08:45)
[2017-02-20] MEDS: NYSTATIN 100,000 U/GM PWD 15 GM BTL TOPICAL SCH (08:45)
[2017-02-20] MEDS: glipiZIDE 5 MG TAB PO SCH (08:45)
[2017-02-20] MEDS: traMADol HCL 50 MG TAB PO SCH ×2 (08:46→09:00)
[2017-02-20] MEDS: PRAVASTATIN SOD 40 MG TAB PO SCH (08:46)
[2017-02-20] MEDS: buPROPion HCL 150 MG SUSTAINED RELEASE TAB PO SCH (08:46)
[2017-02-20] MEDS: OFLOXACIN 0.3% OPTH SOLN 5 ML BTL RIGHT EYE SCH (09:00)
[2017-02-20] MEDS: TOLTERODINE TARTRATE 4 MG CAP LA PO SCH (09:00)
--- NOTE | 2017-02-20 09:27 | PD.CONS ---
HPI History of Present Illness This is a 76 year old female who is currently in the psychiatric unit being treated for depressive disorder. GI has been consulted for a history of Sena 's esophagus and a 140 pound weight loss. The patient is resting comfortably in bed in no distress. She reports that she did lose 140 pounds about a year and a half ago while she was enrolled in a research program for diabetes. She reports that this consisted of daily injections and she was told the benefit of this medication was that it assisted with weight loss. She reports that while she was receiving this medication she did lose 140 pounds, but she has been slowly gaining this back since she's been off of the medication. She reports is safer she has gained 30 pounds back. She reports that her appetite is good and she is eating 3 meals per day, however she is trying to make healthier food choices. She was diagnosed with Sena's esophagus about 3 years ago. She is not currently on any medication for this. She states that when she was originally diagnosed, she was having significant heartburn and reflux, but has not had this for well over a year. She also has a history of esophageal strictures and requires periodic dilatations. Her last EGD with dilatation was about 3-1/[address] Aguillon in [facility]. She does occasionally have difficulty with dry solids getting caught in her upper esophagus, but states this is only if she takes too big of a bite or eats too fast. Otherwise she has no difficulty swallowing. She takes liquids without any problems. She also does have chronic constipation but states this is well controlled with Senokot. She denies any melena or hematochezia. Discussed with patient further evaluation with EGD plus or minus dilatation, inpatient versus outpatient. The patient reports that she is hoping to be due to discharged today because her grandson is graduating in 2 days and she would like to attend his graduation ceremony. She reports that she would like to follow up with her own GI physician, but states that there is any problems of being seen she will follow up with our group as outpatient. She does not want to have any procedures done inpatient because she does not want to miss her grandson's graduation. (Krystle Gtz) PFSH Past Medical History Sena's esophagus Hypertension Diabetes Chronic kidney disease COPD Atrial fibrillation Depression History of Graves' disease History of bladder issues Esophageal strictures Past Surgical History Cholecystectomy Cataract surgery EGD with dilatation Colonoscopy (Krystle Gtz) Coded Allergies: Contrast Media (Verified Allergy, Severe, Swelling, 02/13/17) Morphine (Verified Allergy, Severe, Rash, 02/13/17) Penicillin (Verified Allergy, Severe, Hives, 02/13/17) Sulfa (Verified Allergy, Severe, 02/13/17) "MOUTH GETS REAL SORE" Vancomycin (Verified Allergy, Unknown, 02/13/17) Medications Allergies Coded Allergies Type Severity Reaction Last Updated Verified Contrast Media Allergy Severe Swelling 02/13/17 Yes Morphine Allergy Severe Rash 02/13/17 Yes Penicillin Allergy Severe Hives 02/13/17 Yes Sulfa Allergy Severe 02/13/17 Yes Vancomycin Allergy Unknown 02/13/17 Yes Active Scripts Medications Dose Route/Sig Days Date Category Dose Instructions Ilevro Opth Drops (Nepafenac) 0.3 % Soln 1 Drop RIGHT EYE DAILY 02/13/17 Reported Ocuflox Opth Drops (Ofloxacin Opth Drops) 0.3 % Drops 1 Drop RIGHT EYE DAILY 02/13/17 Reported Durezol Opth (Difluprednate Opth) 0.05% Emul 1 Drop RIGHT EYE DAILY 02/13/17 Reported Metoprolol Succinate ER 24 HR (Metoprolol Succinate) 25 Mg Tab 25 Mg PO DAILY 02/13/17 Reported Levothyroxine (Levothyroxine Sodium) 150 Mcg Tab 150 Mcg PO DAILY 02/13/17 Reported Pantoprazole (Pantoprazole Sodium) 40 Mg Tab 40 Mg PO DAILY 02/13/17 Reported Myrbetriq (Mirabegron) 50 Mg Tab 50 Mg PO DAILY 02/13/17 Reported Trazodone (Trazodone HCl) 300 Mg Tab 300 Mg PO HS 02/13/17 Reported Lorazepam 0.5 Mg Tab 0.5 Mg PO HS 02/13/17 Reported Wellbutrin Xl 24 HR (Bupropion HCl) 300 Mg Tab 300 Mg PO DAILY 02/13/17 Reported Prozac (Fluoxetine HCl) 40 Mg Cap 40 Mg PO DAILY (NOON) 02/13/17 Reported Ultram (Tramadol HCl) 50 Mg Tab 50 Mg PO DAILY 02/13/17 Reported Senna-Docusate Sodium (Sennosides-Docusate Sodium) 8.6-50 Mg Tab 1 Tab PO DAILY 02/13/17 Reported Pravastatin 40 Mg Tab 40 Mg PO DAILY 02/13/17 Reported Lisinopril 5 Mg Tab 5 Mg PO DAILY 02/13/17 Reported Nitrofurantoin Macrocrystal 50 Mg Cap 50 Mg PO BID 02/13/17 Reported Biotin 5 Mg Cap 5 Mg PO 02/13/17 Reported Jantoven (Warfarin) 5 Mg Tab 5 Mg PO DIRECTED 02/13/17 Reported Glipizide 5 Mg Tab 2.5 Mg PO DAILY 02/13/17 Reported Take 30 minutes before a meal Family History Mother had breast cancer Father had lung cancer Social History Remote one pack year smoking history No alcohol or illicit drug use (Krystle Gtz) Review of Systems Constitutional: COMPLAINS OF: Weight loss, DENIES: Fatigue, Fever, Chills, Change in appetite Respiratory: DENIES: Cough Cardiovascular: DENIES: Chest pain Gastrointestinal: COMPLAINS OF: Constipation, Difficulty Swallowing, DENIES: Abdominal pain, Black stools, Bloody stools, Diarrhea, Nausea, Vomiting, Anorexia, Swelling of Abdomen, Heartburn Musculoskeletal: COMPLAINS OF: Joint pain Integumentary: DENIES: Abnormal pigmentation Hematologic/lymphatic: DENIES: Bruising Neurologic: DENIES: Headache Psychiatric: COMPLAINS OF: Depression, DENIES: Confusion (Krystle Gtz) GI Exam Vitals I&O Vital Signs Date Time Temp Pulse Resp B/P Pulse Ox O2 Delivery O2 Flow Rate FiO2 02/20/17 05:36 97.8 65 16 112/58 97 02/19/17 21:46 97.8 63 18 128/59 98 Imaging Last Impressions Renal Ultrasound 02/18/17 0000 Signed Impressions: Service Date/Time: Saturday, February 18, 2017 20:46 - CONCLUSION: 1. Chronic appearing parenchymal disease with diffuse cortical thinning and elevated parenchymal echogenicity. 2. No obstructive uropathy or other acute abnormality. 3. Numerous bilateral renal cysts measuring up to 9 cm in size. 4. Urinary bladder within normal limits. Reed Rico MD Lower Extremity Ultrasound 02/17/17 0000 Signed Impressions: Service Date/Time: Friday, February 17, 2017 15:17 - CONCLUSION: No DVT. Reed Dunbar MD Laboratory Test 02/19/17 02/20/17 21:37 03:27 Total Creatine Kinase 53 U/L 43 U/L Troponin I LESS THAN 0.02 LESS THAN 0.02 NG/ML NG/ML Date/Time Procedure Status Source Growth 02/16/17 09:13 Urine Culture - Final Complete Urine Clean Catch 50-100,000 CFU/ML MIXED GRAM POSITIVE... Physical Examination GEN: Well nourished HEENT: Normocephalic; atraumatic; no jaundice CHEST: CTA CARDIAC: RRR ABDOMEN: Soft, nondistended, nontender; no hepatosplenomegaly; bowel sounds are present in all four quadrants. EXTREMITIES: No clubbing, cyanosis, or edema. SKIN: Normal; no rash; no jaundice. SKATING RINK MANAGER: No focal deficits; alert and oriented times three. (Krystle Gtz) Assessment and Plan Plan ASSESSMENT: - Weight loss. Reports a 140 lb weight loss 1.5 years ago while enrolled on a Research Study Drug for DM. She states this was a daily injection that was supposed to help with DM and Weight loss. She lost 140 lbs while enrolled, but states she has slowly been gaining this back since she has been off the study drug-30 lbs to date, but has been trying to make healthier food choices. Her appetite is good, there is no n/v, no abdominal pain, no bowel changes, no melena or hematochezia. Her last EGD/Colonoscopy was 3.5 years ago. - Dysphagia with hx of esophageal strictures. Occasional difficulty with dry solids getting caught in upper esophagus. She has had 2 dilatations in the past. She is able to control this by eating softer foods and small bites. D /W patient that she would like benefit from EGD with possible dilatation. She would like to have done as outpatient. - Sena's Esophagus. Dx 3.5 years ago at time of last EGD. Asymptomatic at this time. On PPI. Recommend that she continue this at discharge and schedule EGD +/- Dilatation as outpatient. Pt would like to follow up with her own GI group, but states she will contact us if she has any problems getting seen. - Constipation. Controlled with Senokot - Depression, per psych. - HTN, DM, CKD, COPD, Atrial Fibrillation per primary PLAN: - ADAIR - Antireflux measures - Cont. PPI at discharge - Cont. Senokot - FU GI as outpatient for EGD +/- Dilatation, +/- Screening Colonoscopy ( depending on records). She would like to have this done as outpatient, as she is not having any current issues and her grandson is graduating in 2 days from high school and she would like to attend this ceremony. She would like to follow up with her own GI group, but states if she has any problems being seen, she will contact our office - Okay to d/c home from GI standpoint - Pt seen and examined by Dr. Henson and myself and this note is written on his behalf (Krystle Gtz) Physician Comments Patient seen and examined Agree with above Follow-up with GI as outpatient (Chris Henson MD) Krystle Gtz February 20, 2017 09:27 Chris Henson MD February 20, 2017 20:38
[2017-02-20 09:30] LABS: INTERNATIONAL NORMALIZED RATIO 2.1 RATIO; PROTHROMBIN TIME - PATIENT 24.5 SEC (9.8-11.6)
[2017-02-20 10:13] LABS: CREATINE KINASE 45 U/L (26-192)
[2017-02-20] MEDS: FLUoxetine HCL 20 MG CAP PO SCH (12:00)
[2017-02-20] MEDS ORDERED: LISI-519 PO (13:59)
[2017-02-20] MEDS ORDERED: LORA-392 PO (13:59)
[2017-02-20] MEDS ORDERED: [UNRECOGNIZED DRUG - OTHER] RIGHT EYE (13:59)
[2017-02-20] MEDS ORDERED: LEVO.15 PO (13:59)
[2017-02-20] MEDS ORDERED: TRAZ300T2 PO (13:59)
[2017-02-20] MEDS ORDERED: NYST10007 TOPICAL (13:59)
[2017-02-20] MEDS ORDERED: OFLO0.3D5 RIGHT EYE (13:59)
[2017-02-20] MEDS ORDERED: DETR4CAP PO (13:59)
[2017-02-20] MEDS ORDERED: FERR325T PO (13:59)
[2017-02-20] MEDS ORDERED: ULTR50TA5 PO (13:59)
[2017-02-20] MEDS ORDERED: COUM5TAB PO (13:59)
[2017-02-20] MEDS ORDERED: BUPR150CR PO (13:59)
[2017-02-20] MEDS ORDERED: SENN1TAB PO (13:59)
[2017-02-20] MEDS ORDERED: PANT40TA3 PO (13:59)
[2017-02-20] MEDS ORDERED: PRAV40TA PO (13:59)
[2017-02-20] MEDS ORDERED: DIFLUPREDNATE OPTH RIGHT EYE (13:59)
[2017-02-20] MEDS ORDERED: GLIP5 PO (13:59)
[2017-02-20] MEDS ORDERED: METO25TA6 PO (13:59)
[2017-02-20] MEDS ORDERED: PROZ40CA PO (13:59)
[2017-02-20] MEDS ORDERED: AMLO5 PO (13:59)
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
--- NOTE | 2017-02-20 14:51 | EKG ---
Date Performed: 02/19/2017 Time Performed: 21:11:15 PTAGE: 76 years EKG: Sinus rhythm LATERAL MYOCARDIAL INFARCTION , PROBABLY OLD ABNORMAL ECG NO PREVIOUS TRACING DOCTOR: Maximus Beebe Interpretating Date/Time 02/20/2017 14:49:27
== END 2017-02-20 15:55 | disposition home or self-care (01) | DRG 885 ==
LOC: NEPJ 16:16 → NEDA 02-14 14:18 → H250 02-14 17:36 → H260 02-16 21:44
PROVIDERS: ADMIT Psychiatry & Neurology Psychiatry; ATTEND Psychiatry & Neurology Psychiatry
DX: F33.2 Major depressive disorder, recurrent severe without psychotic features (principal); N17.9 Acute kidney failure, unspecified; R45.851 Suicidal ideations; E11.22 Type 2 diabetes mellitus with diabetic chronic kidney disease; I48.91 Unspecified atrial fibrillation; J44.9 Chronic obstructive pulmonary disease, unspecified; D69.6 Thrombocytopenia, unspecified; I12.9 Hypertensive chronic kidney disease with stage 1 through stage 4 chronic kidney disease, or unspecified chronic kidney disease; B37.3 Candidiasis of vulva and vagina; N18.2 Chronic kidney disease, stage 2 (mild); M19.90 Unspecified osteoarthritis, unspecified site; H91.90 Unspecified hearing loss, unspecified ear; E05.00 Thyrotoxicosis with diffuse goiter without thyrotoxic crisis or storm; E78.5 Hyperlipidemia, unspecified; D72.819 Decreased white blood cell count, unspecified; D72.821 Monocytosis (symptomatic); K22.70 Barrett's esophagus without dysplasia; D50.9 Iron deficiency anemia, unspecified; E86.9 Volume depletion, unspecified; N28.1 Cyst of kidney, acquired; K21.9 Gastro-esophageal reflux disease without esophagitis; F43.10 Post-traumatic stress disorder, unspecified; Z62.810 Personal history of physical and sexual abuse in childhood; Z79.01 Long term (current) use of anticoagulants; Z79.84 Long term (current) use of oral hypoglycemic drugs; Z87.891 Personal history of nicotine dependence; Z88.0 Allergy status to penicillin; Z88.1 Allergy status to other antibiotic agents; Z88.2 Allergy status to sulfonamides; Z88.5 Allergy status to narcotic agent; Z91.041 Radiographic dye allergy status; Z91.5 Personal history of self-harm
CPT/HCPCS: 76775; 80048; 80053; 80076; 80307; 81001; 82550; 82607; 82728; 82948; 83036; 83540; 83550; 84443; 84484; 85025; 85044; 85060; 85610; 85730; 87086; 93005; 93971; J1815; Q0163